=== PATIENT | male | born 1955 | race Caucasian/White ===

== ENCOUNTER 2016-06-08 21:40 | Observation (INO) | payer OTHER ==
[~2016-06-08] VITALS: Ht 186.7 cm; Wt 103.1 kg
[~2016-06-08 21:40] MED LIST: ASPEC81 PO; ATEN-173 PO; CLIN150C PO; FERR324T PO; MAGN400T6 PO; MORP15TA19 PO; MULT-506 PO; NITR0.4S UT; OMEG10007 PO; SIMV20TA2 PO; WARF1TAB PO
[2016-06-08] MEDS ORDERED: METOPROLOL TARTRATE 1 MG/ML VIAL ONE (21:50)
[2016-06-08] MEDS ORDERED: SODIUM CHLORIDE 0.9% 1000ML 500 ML IV STA (21:54)
[2016-06-08] MEDS ORDERED: METOPROLOL TARTRATE 1 MG/ML VIAL IV STA (21:54)
[2016-06-08] MEDS ORDERED: ADENOSINE IV SOLN 3 MG/ML 2 ML VIAL IV ONE (21:58)
[2016-06-08] MEDS ORDERED: CLOP1TAB15 PO (22:05)
[2016-06-08 22:14] LABS: HEMATOCRIT 47.9 % (42-52); MEAN CELL VOLUME 88.7 fL (80-100); MEAN CORPUSCULAR HEMOGLOBIN 31.5 pg (25-34); MEAN CORPUSCULAR HGB CONC 35.5 g/dl (32-36); MEAN PLATELET VOLUME 10.1 fL (7.4-10.4); PLATELET COUNT 178 K/uL (130-400); WHITE BLOOD COUNT 7.22 K/uL (4.8-10.8)
[2016-06-08 22:18] LABS: BUN/CREATININE RATIO 15.1 (10-20); CALCIUM 8.8 mg/dl (8.5-10.1); CREATININE 0.96 mg/dl (0.60-1.40); MAGNESIUM 2.3 mg/dl (1.8-2.4); POTASSIUM 3.8 mmol/L (3.5-5.1)
[2016-06-08] MEDS ORDERED: SIMV40TA4 PO (22:18)
[2016-06-08] MEDS ORDERED: ZINC25TA PO (22:18)
[2016-06-08 22:23] LABS: ALB/GLOB RATIO 1.2 (0.9-2); CKMB/CK RATIO 1.8 (0-3.0)
--- NOTE | 2016-06-08 22:24 | EMERGENCY ROOM VISIT NOTE ---
History Report prepared by Beatriz: Arcenio Tadeo Under the Supervision of: Dr. Neno Healy M.D. First contact with patient: 21:45 Chief Complaint: CHEST PAIN Stated Complaint: CHEST PAIN,NAUSEA,SWEATS History of Present Illness The patient is a 61 year old male who presents to the Emergency Room with complaints of constant chest pain beginning shortly prior to arrival. He has associated nausea, diaphoresis, and heart palpitations. He describes his pain as a feeling of "pressure" and rates it as a 5/10 in severity. The patient denies any pain radiation, SOB, cough or congestion. He notes that he often gets chest pressure with exercise. He states that his chest pressure today began after he had dinner and walked over to his workshop. He is on Atenolol, and states that he has taken it as instructed. The patient has a history of four cardiac stent placements, atrial fibrillation, and multiple cardiac ablations. He states that his most recent ablation was 4-5 years ago and was to correct his atrial fibrillation. He notes that he has been in atrial flutter before in the past. Source of History: patient Onset: shortly prior to arrival Position: chest Symptom Intensity: 5/10 Quality: pressure Timing: constant Associated Symptoms: + diaphoresis, + nausea, No SOB, No cough Note: The patient denies any pain radiation, or congestion. He has associated heart palpitations. Review of Systems See HPI for pertinent positives & negatives. A total of 10 systems reviewed and were otherwise negative. Past Medical & Surgical Medical Problems: (1) Atrial fibrillation (2) Atrial flutter Surgical Problems: (1) H/O heart artery stent (2) History of cardiac radiofrequency ablation Family History No pertinent family history stated. Social History Marital Status: Current/Historical Medications Scheduled Aspirin Enteric Coated (Ecotrin Or Generic *), 81 MG PO DAILY Atenolol (Tenormin), 25 MG PO DAILY Clindamycin Hcl (Cleocin), 150 MG PO DIRECTED Clopidogrel (Plavix), 75 MG PO DAILY Fish Oil ([place]-3), 1 CAP PO BID Magnesium Oxide (Mag-Ox), 400 MG PO DAILY Multivitamin (Multivitamin), 1 TAB PO DAILY Nitroglycerin (Nitrostat), 0.4 MG UT PRN Simvastatin (Zocor), 40 MG PO QPM Zinc (Zinc), 25 MG PO DAILY Allergies Coded Allergies: Amoxicillin (Verified Adverse Reaction, Severe, GI SYMPTOMS, 06/08/16) Penicillins (Verified Adverse Reaction, Unknown, NAUSEA AND DIARRHEA, ) SEVERE DIARRHEA Physical Exam Vital Signs Date Time Temp Pulse Resp B/P Pulse Ox O2 Delivery O2 Flow Rate FiO2 06/08/16 23:30 59 12 119/67 96 Room Air 06/08/16 23:13 119/65 06/08/16 23:00 64 14 128/69 95 Room Air 06/08/16 22:43 114/67 06/08/16 22:30 63 15 122/72 95 Room Air 06/08/16 22:13 120/71 06/08/16 22:04 128/71 06/08/16 22:04 99 Room Air 06/08/16 22:00 95 13 125/74 97 Room Air 06/08/16 21:54 148 06/08/16 21:54 147 128/71 06/08/16 21:42 36.4 151 18 127/94 97 Room Air 06/08/16 21:42 97 Room Air Physical Exam GENERAL: Patient is in no acute distress. HEENT: No acute trauma, normocephalic atraumatic, mucous membranes moist, no nasal congestion, no scleral icterus. NECK: No stridor, no adenopathy, no meningismus, trachea is midline. LUNGS: Clear to auscultation bilaterally, no wheeze, no rhonchi, breath sounds equal. HEART: Tachycardic with a regular rhythm. No murmurs. ABDOMEN: Soft, nontender, bowel sounds positive, no hernias, no peritonitis. EXTREMITIES: No cyanosis or edema, full range of motion of all the joints without pain or difficulty, no signs for acute trauma. NEUROLOGIC: Oriented x 3, no acute motor or sensory deficits, no focal weakness. SKIN: No rash, no jaundice, no diaphoresis. Medical Decision & Procedures ER Provider Diagnostic Interpretation: X-ray results as stated below per interpretation by me and the radiologist: CHEST ONE VIEW PORTABLE FINDINGS: The lungs are clear. Cardiac silhouette is normal in size. No pleural effusions. No pneumothorax. IMPRESSION: No acute process. Electronically signed by: Mynor Childers M.D. Laboratory Results 06/08/16 21:53 06/08/16 21:53 Test 06/08/16 21:53 06/09/16 00:00 Red Blood Count 5.40 M/uL (4.7-6.1) Mean Corpuscular Volume 88.7 fL (80-100) Mean Corpuscular Hemoglobin 31.5 pg (25-34) Mean Corpuscular Hemoglobin Concent 35.5 g/dl (32-36) RDW Standard Deviation 40.6 fL (36.4-46.3) RDW Coefficient of Variation 12.6 % (11.5-14.5) Mean Platelet Volume 10.1 fL (7.4-10.4) Prothrombin Time 11.0 SECONDS (9.0-12.0) Prothromb Time International Ratio 1.0 (0.9-1.1) Activated Partial Thromboplast Time 25.8 SECONDS (21.0-31.0) Partial Thromboplastin Ratio 1.0 Anion Gap 11.0 mmol/L (3-11) Est Creatinine Clear Calc Drug Dose 104.0 ml/min Estimated GFR () 98.5 Estimated GFR (Non- 85.0 BUN/Creatinine Ratio 15.1 (10-20) Calcium Level 8.8 mg/dl (8.5-10.1) Magnesium Level 2.3 mg/dl (1.8-2.4) Total Bilirubin 0.4 mg/dl (0.2-1) Aspartate Amino Transf (AST/SGOT) 30 U/L (15-37) Alanine Aminotransferase (ALT/SGPT) 36 U/L (12-78) Alkaline Phosphatase 58 U/L (45-117) Total Creatine Kinase 287 U/L (39-308) Creatine Kinase MB 5.2 ng/ml (0.5-3.6) Creatine Kinase MB Ratio 1.8 (0-3.0) Total Protein 7.6 gm/dl (6.4-8.2) Albumin 4.1 gm/dl (3.4-5.0) Globulin 3.5 gm/dl (2.5-4.0) Albumin/Globulin Ratio 1.2 (0.9-2) Bedside Troponin I 0.160 ng/ml (0-0.045) Laboratory results reviewed by me. Medications Administered Medications (Trade) Dose Ordered Sig/Bruno Route Start Time Stop Time Status Last Admin Dose Admin Sodium Chloride (Nss 1000ml) 500 ml @ 999 mls/hr Q31M STAT IV 06/08/16 21:54 06/08/16 22:24 DC 06/08/16 21:54 999 MLS/HR Metoprolol Tartrate (Lopressor Iv) 5 mg NOW STAT IV 06/08/16 21:54 06/08/16 21:57 DC 06/08/16 21:54 5 MG Adenosine (Adenosine IV) 6 mg STK-MED ONCE IV 06/08/16 21:58 06/08/16 22:00 DC 06/08/16 21:58 6 MG ECG Indication: chest pain Rate (beats per minute): 151 Rhythm: SVT Findings: no acute ischemic change, no ectopy, other (Nonspecific T-wave change ) Change: Repeat ECG reveals a normal sinus rhythm with an incomplete right bundle branch block. The rate is 69 bpm. No ischemic change is seen. ED Course 2144: The patient was evaluated in room B2. A complete history and physical exam was performed. 2153: Ordered Lopressor 5 mg IV, NSS 500 mL @ 999 mL/hr IV. 2157: Ordered Adenosine 6 mg IV. 2199: The patient received his Adenosine. He handled the medication well. 5: The patient states that his pain is gone, but he feels something that he can't quite explain in his chest. 0029: Upon reexamination the patient is resting comfortably. I discussed results and treatment plan with the patient. He verbalizes agreement and understanding. The patient will be evaluated for further management. Medical Decision The patient is a 61 year old male who presents to the ED with complaints of chest pain. Differential diagnoses considered include SVT, a fib/a flutter, electrolyte imbalance, anemia, dehydration, medication reaction, and cardiac ischemia. There is no leukocytosis or concerning anemia. No significant electrolyte abnormality, kidney failure or hepatitis. EKG showed what appeared to be an SVT or rapid A. flutter. No acute ischemic changes. Chest x-ray showed no mediastinal widening, pneumonia or pneumothorax. The patient presented with chest discomfort and tachycardia. He was aggressively managed. He received a 500 mL saline bolus. I did attempt to perform some vagal and Valsalva maneuvers however, the patient's tachycardia did not break. He received 5 mg of IV Lopressor with a slight slowing of the heart rate but he remained tachycardic. He then received 6 mg of IV Adenosine as a rapid push. This broke the tachycardia to a normal sinus rhythm. Repeat EKG showed a normal sinus rhythm without acute ischemia. Cardiac enzyme testing showed some rise to the troponin. This could be consistent with cardiac strain/injury. The patient is now pain free and doing well. Given the troponin findings and given his current presentation and past history, admission/observation was warranted. I spoke to the patient and case management. The on-call hospitalist was consulted. Consults Time Called: 23 Consulting Physician: Dr. Ron Ho Returned Call: [phone] Discussed the patient's case. The patient will be evaluated for further management. Impression Primary Impression: SVT (supraventricular tachycardia) Additional Impression: Elevated troponin Scribe Attestation The scribe's documentation has been prepared under my direction and personally reviewed by me in its entirety. I confirm that the note above accurately reflects all work, treatment, procedures, and medical decision making performed by me. Departure Information Dispostion Being Evaluated By Hospitalist Referrals Clement Beckwith M.D. (PCP) Patient Instructions A Signature Page, My [facility]
--- NOTE | 2016-06-08 22:31 | DIAGNOSTIC IMAGING REPORT ---
CHEST ONE VIEW PORTABLE HISTORY: Atypical CHEST PAIN COMPARISON: Chest 05/01/2012. FINDINGS: The lungs are clear. Cardiac silhouette is normal in size. No pleural effusions. No pneumothorax. IMPRESSION: No acute process. Electronically signed by: Mynor Childers M.D. 06/08/2016 10:29 PM Dictated Date/Time: 06/08/2016 10:27 PM
[2016-06-09] VITALS (8 sets, daily range): BP systolic 109–130; BP diastolic 66–75; PULSE 48–53; TEMP 36.3–36.5; O2SAT 95–98; Ht 186.7 cm; Wt 103.1 kg
[2016-06-09] MEDS ORDERED: MAGNESIUM HYDROXIDE SUSP 30 ML UDC PO PRN (01:00)
[2016-06-09] MEDS ORDERED: ALUMINUM/MAGNESIUM/SIMETH (MAALOX MAX) 30 ML UDC PO PRN (01:00)
[2016-06-09] MEDS ORDERED: POLYETHYLENE (MIRALAX) 17 GM PACK PO PRN (01:00)
[2016-06-09] MEDS ORDERED: ACETAMINOPHEN 325 MG TAB PO PRN (01:00)
[2016-06-09] MEDS ORDERED: NITROGLYCERIN 0.4 MG SL PER TAB CHARGE SL PRN (01:00)
[2016-06-09] MEDS ORDERED: ONDANSETRON INJ 2 MG/ML 2 ML VIAL IV PRN (01:00)
--- NOTE | 2016-06-09 01:52 | History and Physical ---
History & Physical Date & Time of Service: Jun 09, 2016 at 01:42 Chief Complaint: Chest Pain,Nausea,Sweats Primary Care Physician: Clement Beckwith M.D. History of Present Illness Source: patient, family, clinic records, hospital records This is a 61 year old male with PMH of CAD s/p multiple cardiac stents - last one in 2007; hx. of atrial fibrillation and atrial flutter s/p multiple cardiac ablations, last one in 2011; presented here secondary to chest discomfort - stated that he was in his usual state of health when he suddenly developed a dull, achy left sided chest discomfort, with no radiation of his pain. He presented to the ER and was found to have heart rates in the 140s-150s. Was given IV Lopressor, which did not work. As per ER doctor, this seemed like an SVT; and patient was then given Adenosine, which converted him back to sinus rhythm and controlled rate. Patient states that since this episode of SVT broke , he has not had chest discomfort. Due to elevated troponin level, he is brought in for admission. Currently symptom free. Past Medical/Surgical History Medical Problems: (1) Atrial fibrillation Status: Resolved (2) Atrial flutter Status: Resolved Surgical Problems: (1) H/O heart artery stent Status: Chronic (2) History of cardiac radiofrequency ablation Status: Resolved Social History Smoking Status: Never Smoker Marital Status: Immunizations History of Influenza Vaccine: Yes History of Tetanus Vaccine?: Yes History of Pneumococcal: Yes History of Hepatitis B Vaccine: Unknown Multi-Drug Resistant Organisms History of MDRO: No Allergies Coded Allergies: Amoxicillin (Verified Adverse Reaction, Severe, GI SYMPTOMS, 06/08/16) Penicillins (Verified Adverse Reaction, Unknown, NAUSEA AND DIARRHEA, ) SEVERE DIARRHEA Home Medications Scheduled Aspirin Enteric Coated (Ecotrin Or Generic *), 81 MG PO DAILY Atenolol (Tenormin), 25 MG PO DAILY Clindamycin Hcl (Cleocin), 150 MG PO DIRECTED Clopidogrel (Plavix), 75 MG PO DAILY Fish Oil ([place]-3), 1 CAP PO BID Magnesium Oxide (Mag-Ox), 400 MG PO DAILY Multivitamin (Multivitamin), 1 TAB PO DAILY Nitroglycerin (Nitrostat), 0.4 MG UT PRN Simvastatin (Zocor), 40 MG PO QPM Zinc (Zinc), 25 MG PO DAILY Review of Systems Constitutional: No chills, No fever ENT: No nasal symptoms, No sore throat, No tinnitus Respiratory: No cough, No dyspnea at rest, No dyspnea on exertion, No shortness of breath, No sputum, No wheezing Cardiovascular: + chest pain (now resolved), + palpitations (now resolved), No edema, No orthopnea Abdomen: No diarrhea, No nausea, No pain, No vomiting Genitourinary - Male: No dysuria, No urinary frequency, No urinary hesitancy, No urinary incontinence, No urinary retention, No urinary urgency Hematologic / Lymphatic: No abnormal bleeding/bruising Allergic / Immunologic: No environmental allergies, No seasonal allergies Physical Exam Vital Signs Date Time Temp Pulse Resp B/P Pulse Ox O2 Delivery O2 Flow Rate FiO2 06/09/16 01:00 50 12 119/68 96 Room Air 06/09/16 00:45 52 11 116/64 97 Room Air 06/09/16 00:30 54 13 117/70 97 Room Air 06/09/16 00:15 55 20 118/66 97 Room Air 06/09/16 00:00 55 11 96 Room Air 06/08/16 23:30 59 12 119/67 96 Room Air 06/08/16 23:13 119/65 06/08/16 23:00 64 14 128/69 95 Room Air 06/08/16 22:43 114/67 06/08/16 22:30 63 15 122/72 95 Room Air 06/08/16 22:13 120/71 06/08/16 22:04 128/71 06/08/16 22:04 99 Room Air 06/08/16 22:00 95 13 125/74 97 Room Air 06/08/16 21:54 148 06/08/16 21:54 147 128/71 06/08/16 21:42 36.4 151 18 127/94 97 Room Air 06/08/16 21:42 97 Room Air General Appearance: no apparent distress Head: normocephalic, atraumatic Eyes: normal inspection Respiratory/Chest: lungs clear, normal breath sounds, no respiratory distress, no accessory muscle use Cardiovascular: regular rate, rhythm, no edema, no murmur Abdomen/GI: normal bowel sounds, non tender, soft Back: no muscle spasm Extremities/Musculoskelatal: no calf tenderness, normal capillary refill, no pedal edema Neurologic/Psych: no motor/sensory deficits, alert, normal mood/affect Skin: normal color Lymphatic: no adenopathy Diagnostics Laboratory Results Results Past 24 Hours Test 06/08/16 21:53 06/08/16 21:56 06/09/16 00:00 Range/Units White Blood Count 7.22 4.8-10.8 K/uL Red Blood Count 5.40 4.7-6.1 M/uL Hemoglobin 17.0 14.0-18.0 g/dL Hematocrit 47.9 42-52 % Mean Corpuscular Volume 88.7 80-100 fL Mean Corpuscular Hemoglobin 31.5 25-34 pg Mean Corpuscular Hemoglobin Concent 35.5 32-36 g/dl RDW Standard Deviation 40.6 36.4-46.3 fL RDW Coefficient of Variation 12.6 11.5-14.5 % Platelet Count 178 130-400 K/uL Mean Platelet Volume 10.1 7.4-10.4 fL Prothrombin Time 11.0 9.0-12.0 SECONDS Prothromb Time International Ratio 1.0 0.9-1.1 Activated Partial Thromboplast Time 25.8 21.0-31.0 SECONDS Partial Thromboplastin Ratio 1.0 Sodium Level 141 136-145 mmol/L Potassium Level 3.8 3.5-5.1 mmol/L Chloride Level 107 98-107 mmol/L Carbon Dioxide Level 23 21-32 mmol/L Anion Gap 11.0 3-11 mmol/L Blood Urea Nitrogen 15 7-18 mg/dl Creatinine 0.96 0.60-1.40 mg/dl Est Creatinine Clear Calc Drug Dose 104.0 ml/min Estimated GFR () 98.5 Estimated GFR (Non- 85.0 BUN/Creatinine Ratio 15.1 10-20 Random Glucose 135 70-99 mg/dl Calcium Level 8.8 8.5-10.1 mg/dl Magnesium Level 2.3 1.8-2.4 mg/dl Total Bilirubin 0.4 0.2-1 mg/dl Aspartate Amino Transf (AST/SGOT) 30 15-37 U/L Alanine Aminotransferase (ALT/SGPT) 36 12-78 U/L Alkaline Phosphatase 58 45-117 U/L Total Creatine Kinase 287 39-308 U/L Creatine Kinase MB 5.2 0.5-3.6 ng/ml Creatine Kinase MB Ratio 1.8 0-3.0 Total Protein 7.6 6.4-8.2 gm/dl Albumin 4.1 3.4-5.0 gm/dl Globulin 3.5 2.5-4.0 gm/dl Albumin/Globulin Ratio 1.2 0.9-2 Bedside Troponin I 0.020 0.160 0-0.045 ng/ml CXR normal EKG NSR with incomplete RBBB Impression Assessment and Plan This is a 61 year old male with PMH of CAD s/p multiple cardiac stents, hx. of atrial fibrillation and atrial flutter s/p multiple cardiac ablations presented with SVT Supraventricular Tachycardia -->patient presented with a narrow complex tachycardia -->HRs were in the 140s-150s -->given IV lopressor and IV adenosine with good results -->symptoms of chest pain/discomfort have now resolved -->monitor on tele for any arrhythmias overnight -->has a long history of atrial fibrillation/atrial flutter -->continue home b-andrew dose -->consult cardiology for further input Elevated Troponin Level -->this is likely due to above -->initial set of enzymes were negative -->second set slightly elevated -->trend cardiac enzymes -->obtain echo (patient receives yearly echo and stress q2 years - last one negative) CAD s/p multiple stents -->continue ASA, plavix, b-andrew, statin DVT ppx -->subq heparin FULL CODE observe overnight - d/c home after cardiology evaluation VTE Prophylaxis VTE Risk Assessment Done? Y/N: Yes Risk Level: Moderate
[2016-06-09] MEDS ORDERED: IV FLUIDS COMPLETED PRN (02:30)
[2016-06-09] MEDS: SODIUM CHLORIDE 0.9% 1000ML 1,000 ML IV SCH ×2 (02:50→13:29)
[2016-06-09] MEDS: HEPARIN SOD 5000 UNIT/0.5 ML CARP SQ SCH ×2 (05:56→13:55)
[2016-06-09 07:13] LABS: MEAN CELL VOLUME 89.4 fL (80-100); MEAN CORPUSCULAR HEMOGLOBIN 30.7 pg (25-34); MEAN CORPUSCULAR HGB CONC 34.3 g/dl (32-36); MEAN PLATELET VOLUME 9.8 fL (7.4-10.4); PLATELET COUNT 164 K/uL (130-400); RED BLOOD COUNT 4.92 M/uL (4.7-6.1); WHITE BLOOD COUNT 5.32 K/uL (4.8-10.8)
[2016-06-09 07:20] LABS: BUN/CREATININE RATIO 16.5 (10-20); CALCIUM 8.7 mg/dl (8.5-10.1); CREATININE 0.78 mg/dl (0.60-1.40); MAGNESIUM 2.3 mg/dl (1.8-2.4); POTASSIUM 3.9 mmol/L (3.5-5.1)
[2016-06-09 07:39] LABS: CKMB/CK RATIO 2.7 (0-3.0); THYROID STIMULATING HORMONE 2.35 uIu/ml (0.300-4.500)
[2016-06-09] MEDS ORDERED: ASPIRIN 81 MG ECTAB PO SCH (09:00)
[2016-06-09] MEDS ORDERED: CLOPIDOGREL BISULFATE 75 MG TAB PO SCH (09:00)
--- NOTE | 2016-06-09 10:11 | ECHOCARDIOGRAM REPORT ---
*NOTICE TO RECEIVING [employer] This information is strictly Confidential and protected under [place] law. [place] law prohibits you from making any further disclosure of this information unless further disclosure is expressly permitted by the written consent of the person to whom it pertains or is authorized by law. A general authorization for the release of medical or other information is not sufficient for this purpose. Hospital accepts no responsibility if the information is made available to any other person, INCLUDING THE PATIENT. Interpretation Summary * Name: MCKINLEY CHEUNG Study Date: 06/09/2016 07:08 AM BP: 109/68 mmHg * Patient Location: C.2T\S\S240\S\1 HR: 49 * : 1955 (M/d/yyy) Gender: Male Height: 73 in * Age: 61 yrs Ethnicity: [place] Weight: 233 lb * Ordering Physician: Lucian Velasquez * Referring Physician: Self, Referred * Performed By: Felice Beltran RDCS * * Reason For Study: SVT * BSA: 2.3 m2 * -- Conclusions -- * There is mild concentric left ventricular hypertrophy. * No regional wall motion abnormalities noted. * The LV Ejection Fraction = 60-65%. * The left atrium is mildly dilated. * The aortic valve is bicuspid. * There is fusion of the left and right coronary cusps with an area of severe focal calcification at the raphe. * Mild aortic regurgitation. * Aortic stenosis is absent. * Diastolic dysfunction, Grade II (pseudonormalization pattern). * Compared to the report of the outpatient study performed at [facility] dated, 08/21/15, there has been no significant interval change. Procedure Details * A complete two-dimensional transthoracic echocardiogram was performed (2D, M-mode, Doppler and color flow Doppler). * The study was technically adequate. Left Ventricle * The left ventricle is normal in size. * There is mild concentric left ventricular hypertrophy. * Left ventricular systolic function is normal. * Ejection Fraction = 60-65%. * The left ventricular wall motion is normal. * No regional wall motion abnormalities noted. Right Ventricle * The right ventricle is normal size. * The right ventricular systolic function is normal as assessed by tricuspid annular plane systolic excursion (TAPSE) (normal >1.5 cm). Atria * The left atrium is mildly dilated. * Right atrial size is normal. * There is no evidence of atrial septal defect, but resolution does not allow assessment for a patent foramen ovale. Mitral Valve * The mitral valve is normal. * There is no mitral valve stenosis. * There is trace mitral regurgitation. Tricuspid Valve * The tricuspid valve is normal. * There is no tricuspid stenosis. * Significant tricuspid regurgitation is absent. Aortic Valve * The aortic valve is bicuspid. * There is fusion of the left and right coronary cusps with an area of severe focal calcification at the raphe. * Aortic stenosis is absent. * Mild aortic regurgitation. Pulmonic Valve * The pulmonary valve is not well seen, but the Doppler examination is normal without significant regurgitation or stenosis. Great Vessels * The aortic root and proximal ascending aorta are normal sized. Pericardium/Pleural * There is no pericardial effusion. Great Vessels * Normal inferior vena cava diameter and respiratory variation suggests normal central venous pressure. Left Ventricular Diastolic Function * Diastolic dysfunction, Grade II (pseudonormalization pattern). MMode 2D Measurements and Calculations IVSd 1.3 cm IVSs 2.0 cm LVIDd 5.3 cm LVIDs 3.7 cm LVPWd 1.2 cm LVPWs 2.0 cm IVS/LVPW 1.1 FS 30.7 % EDV(Teich) 136.5 ml ESV(Teich) 57.6 ml EF(Teich) 57.8 % EDV(cubed) 150.6 ml ESV(cubed) 50.1 ml EF(cubed) 66.7 % % IVS thick 45.6 % % LVPW thick 62.7 % LV mass(C)d 280.3 grams LV mass(C)dI 122.1 grams/m\S\2 LV mass(C)s 323.9 grams LV mass(C)sI 141.1 grams/m\S\2 SV(Teich) 78.9 ml SI(Teich) 34.4 ml/m\S\2 SV(cubed) 100.5 ml SI(cubed) 43.8 ml/m\S\2 Ao root diam 3.9 cm Ao root area 12.2 cm\S\2 ACS 1.8 cm LA dimension 4.4 cm asc Aorta Diam 4.0 cm LA/Ao 1.1 LVOT diam 2.6 cm LVOT area 5.2 cm\S\2 LVAd ap4 30.7 cm\S\2 LVLd ap4 8.7 cm EDV(MOD-sp4) 90.0 ml LVAs ap4 17.1 cm\S\2 LVLs ap4 7.7 cm ESV(MOD-sp4) 32.0 ml EF(MOD-sp4) 64.4 % LVAd ap2 33.2 cm\S\2 LVLd ap2 9.6 cm EDV(MOD-sp2) 95.0 ml LVAs ap2 17.0 cm\S\2 LVLs ap2 6.9 cm ESV(MOD-sp2) 33.0 ml EF(MOD-sp2) 65.3 % SV(MOD-sp4) 58.0 ml SI(MOD-sp4) 25.3 ml/m\S\2 SV(MOD-sp2) 62.0 ml SI(MOD-sp2) 27.0 ml/m\S\2 Doppler Measurements and Calculations MV E max ramez 77.1 cm/sec MV A max ramez 39.4 cm/sec MV E/A 2.0 MV dec time 0.20 sec Ao V2 max 197.4 cm/sec Ao max PG 15.6 mmHg Ao max PG (full) 11.6 mmHg Ao V2 mean 135.2 cm/sec Ao mean PG 8.4 mmHg Ao mean PG (full) 6.3 mmHg Ao V2 VTI 47.6 cm NASRA(I,A) 3.0 cm\S\2 NASRA(I,D) 3.0 cm\S\2 NASRA(V,A) 2.6 cm\S\2 NASRA(V,D) 2.6 cm\S\2 AI max ramez 318.7 cm/sec AI max PG 40.7 mmHg AI dec slope 128.8 cm/sec\S\2 AI P1/2t 724.8 msec LV V1 max PG 3.9 mmHg LV V1 mean PG 2.1 mmHg LV V1 max 99.3 cm/sec LV V1 mean 68.8 cm/sec LV V1 VTI 27.1 cm SV(Ao) 578.5 ml SI(Ao) 251.9 ml/m\S\2 SV(LVOT) 141.7 ml SI(LVOT) 61.7 ml/m\S\2 PA V2 max 95.6 cm/sec PA max PG 3.7 mmHg PI end-d ramez 113.5 cm/sec TR max ramez 257.8 cm/sec
--- NOTE | 2016-06-09 13:41 | CARDIOLOGY CONSULTATION ---
DATE OF CONSULTATION: 06/09/2016 HISTORY OF PRESENT ILLNESS: Mr. Glaser is a 61-year-old male seen in cardiology consultation per the request of Dr. Velasquez for the evaluation of narrow complex tachycardia, chest pain, and elevation in troponin. The patient's primary jackerman is Dr. Fred Srinivasan of our practice, whom the patient had last seen in April 2016. The patient has a history of atrial arrhythmias including paroxysmal atrial fibrillation and atrial flutter, having undergone pulmonary vein isolation in 2008 and again in 2010, with the 2010 procedure also accompanied by tricuspid caval isthmus ablation for atrial flutter at that time. The patient also has a history of CAD and bicuspid aortic valve. All summarized in detail below. The patient states that 6 months ago, he had a syncopal episode. At that time, he was on atenolol 50 mg daily. It was felt that his resting heart rate was too low and the atenolol dose was reduced from 50 mg daily to 25 mg daily. He went on to have a 13-day cardiac Zio monitor that took place from 10/05/2015 until 10/19/2015. The monitor revealed a single 4-beat run of nonsustained ventricular tachycardia and 9 brief runs of supraventricular tachycardia. The supraventricular tachycardia episode with the fastest interval was 6 beats in duration with the maximum rate of 156 beats per minute and the longest SVT santo was 10 beats in duration with an average heart rate of 92 beats per minute. The patient has felt well in the interim time on his lower dose of atenolol. 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 The symptoms persisted for about an hour and he ultimately presented to the Emergency Room with initial EKG performed on 06/08/2015 at 2146 hours, revealing narrow complex tachycardia at 151 beats per minute with mild nonspecific ST changes. The patient received 5 mg of IV metoprolol at 2150. He then received 6 mg of IV adenosine at 2202. With adenosine, he spontaneously converted to sinus bradycardia with a 1.4-second conversion pause. No flutter waves were visible with the administration of adenosine, and looking at the morphology of the tachycardia by 12-lead EKG as well as the telemetry of how he converted, this appears to be due to a supraventricular tachycardia. The patient states that his chest pressure resolved after resolution of the tachycardia. Repeat EKG revealed sinus rhythm at 69 beats per minute with incomplete right bundle branch block and no significant ST changes. Ventricular rate was decreased by 82 beats per minute. Although, mild inferior ST depression was noted, this was not drastically different from his previous baseline EKG. It was noted that the patient has a history of chronic coronary artery disease with the details summarized below. His last exercise stress echocardiogram took place in July 2014, at which time he exercised for 12 minutes with no EKG or echocardiographic evidence of inducible ischemia. He does have the history of warm-up angina. He exercises routinely, doing a few miles of treadmill exercise and stationary bicycle exercise daily and he typically has mild chest discomfort that was started with exercise that resolves with progressive exercise. He does exercise program yesterday and noted no significant symptoms whatsoever. He notes that he was in his normal state of health prior to the tachycardia episode last night with no recent fevers or chills. No recent illness, otherwise. PAST MEDICAL HISTORY: 1. Coronary heart disease with cardiac catheterization in 2004 and 2007, for which he underwent stenting to the RCA and PDA in 2004. In 2007, he was found to have nonobstructive left main and LAD disease with a 70% proximal circumflex stenosis and 100% occlusion at the mid right coronary artery with left to right collaterals. He underwent stenting to the circumflex OM at that time and a complete right coronary artery occlusion was managed medically. 2. Bicuspid aortic valve with a history of mild to moderate aortic valve regurgitation. 3. History of recurrent symptomatic atrial fibrillation. He was treated with flecainide in 2001, which was subsequently discontinued after 5 months of therapy as it was ineffective. From 2001 to 2007, he was managed with digoxin and atenolol. In 2007, sotalol was initiated, but the dose was limited by bradycardia and he therefore underwent his first pulmonary vein isolation with procedure having been performed by Dr. Courtney Angel of electrophysiology at [facility] on 10/26/2008. He had recurrent atrial fibrillation in the fall of 2008 and was started on a low-dose sotalol. He underwent repeat pulmonary vein isolation for recurrent symptomatic atrial fibrillation on 02/07/2011 with right-sided tricuspid isthmus ablation for atrial flutter at the same setting in January 2009. Sotalol dose of 80 mg a.m. and 40 mg in p.m. was discontinued in 2011, he was subsequently transitioned to metoprolol succinate, and then to atenolol 50 mg daily. The dose of atenolol was reduced to 25 mg daily 6 months ago (Oct, 2015) due to syncopal episode as outlined above. 4. History of therapy with aspirin, clopidogrel, plus Pradaxa. Pradaxa was discontinued on 05/09/2011 three months post-recurrent ablation and he has remained on chronic dual antiplatelet therapy with aspirin and clopidogrel due to his chronic coronary heart disease. PAST SURGICAL HISTORY: 1. Cardiac catheterization x2 as outlined above. 2. History of pulmonary vein isolation x2 as well as atrial flutter ablation. 3. Status post left knee replacement. FAMILY HISTORY: Father of Hodgkin's lymphoma at the age of 53. SOCIAL HISTORY: The patient is . His spouse accompanies him at the bedside. 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 He exercises regularly. Drinks alcohol rarely. He is a nonsmoker. REVIEW OF SYSTEMS: A 10-point review of systems was reviewed and is negative with the exception of that above. HOME MEDICATIONS: 1. Aspirin 81 mg by mouth daily. 2. Atenolol 25 mg by mouth daily. 3. Clindamycin 150 mg 4 tablets by mouth prior to dental procedures. 4. Clopidogrel 75 mg daily. 5. Fish oil 1000 mg by mouth 2 times per day. 6. Magnesium oxide 400 mg b.i.d. 7. Sublingual nitroglycerin 0.4 mg as needed for chest pain. 8. Simvastatin 40 mg by mouth daily. DIAGNOSTIC DATA: As outlined above with addition of echocardiogram performed today and reviewed independently by the undersigned revealed mild concentric left ventricular hypertrophy with normal LV wall motion, the ejection fraction is normal at 60%-65%. The left atrium is mildly dilated. The aortic valve is bicuspid with fusion of the left and right coronary cusps and an area of severe focal calcification at the area of the raphe. Mild aortic valve regurgitation is noted. No significant aortic stenosis is noted. Grade 2 diastolic dysfunction is noted. Compared to the record of the outpatient study performed at [facility] dated 08/21/2015, there has been no significant interval change. LABORATORY STUDIES: Hemoglobin 15.1, WBC 5.3, and platelet count 164. Sodium 141, potassium 3.9, BUN 13, and creatinine 0.78. CPK 287 and 201 respectively. Troponin 0.020, 0.160, and 0.827 with elevated CK-MB of 5.4. TSH was within normal limits. FINAL IMPRESSION: 61-year-old male 1. Symptomatic paroxysmal supraventricular tachycardia with associated mild myocardial injury as documented by mild troponin I elevation. This is likely a type 2 with ischemic event due to significant tachycardia in the setting of fixed coronary artery disease with known chronic mid right coronary artery occlusion and left to right collaterals on his last coronary angiogram, previous circumflex stenting. 2. History of paroxysmal atrial fibrillation and atrial flutter, for which he has undergone pulmonary vein isolation x2 as well as atrial flutter ablation. 3. Coronary artery disease as outlined above. 4. Dyslipidemia, on statin therapy. 5. Stable bicuspid aortic valve with mild aortic valve regurgitation. DISCUSSION AND PLAN: His outpatient records were reviewed in detail including his 13-day shelter monitor that was performed 6 months ago and his prior electrophysiology notes. It sounds as though medication therapy for his atrial arrhythmias was limited in the past by relative bradycardia. A few months ago, his atenolol dose was decreased due to symptomatic bradycardia. We discussed the following options. One option would be to maintain the same medications and to plan for outpatient general cardiology as well as electrophysiology followup. Future considerations would include permanent pacemaker implantation for heart rate support, which would allow more aggressive medication therapy, as alternative for repeat ablation. Repeat electrophysiology study for SVT and possible ablation could be attempted. I discussed potential of going back up on his atenolol therapy; however, I think that this would be too risky given his past syncopal episode associated bradycardia. We discussed the option of going back on sotalol. This would require inpatient initiation and I am not very optimistic that this strategy would be effective, as I would anticipate that the dose of sotalol would be limited by his resting bradycardia with sinus bradycardia in the 45-55 beats per minute range at rest on telemetry at present and I do not think the sotalol, which likely offer much more in the way of rhythm control on this low dose atenolol that he is currently on. I thought that the patient did have a small elevation in his cardiac enzymes. He does note a longstanding history of "warmup angina." This has been well documented in his record dating back to prior to 2011. He exercises regularly and has had no recent anginal symptoms. I do not think his presentation represents an acute intracoronary plaque rupture and I think that the mild elevation in the troponin I is due to myocardial necrosis from his tachycardia episode in the setting of fixed underlying CAD. At this time, the patient is to be discharged on the same medications with plans to proceed with outpatient surveillance and EP / General Cardiology follow up within the next 1-4 weeks. The case was discussed with hospitalist, Dr. Villagran. FRANCISCO
--- NOTE | 2016-06-09 14:56 | Discharge Instructions ---
Discharge Instructions Admission Reason for Admission: Elevated Troponin, Svt Discharge Discharge Diagnosis / Problem: Symptomatic paroxysmal supraventricular tachycardia Discharge Goals Goal(s): Decrease discomfort, Improve function Activity Recommendations Activity Limitations: resume your previous activity . Instructions / Follow-Up Instructions / Follow-Up Follow up with on 06/18/16 at 2:20pm Follow up with your farm equipment technician Seek immediate medical attention if your symptoms reoccur or worsen. Current Hospital Diet Patient's current hospital diet: AHA Diet (Heart Healthy) Discharge Diet Recommended Diet: AHA Diet (Heart Healthy) Procedures Procedures Performed: ECHO Pending Studies Studies pending at discharge: no Medical Emergencies . Who to Call and When: Medical Emergencies: If at any time you feel your situation is an emergency, please call 911 immediately. . Non-Emergent Contact Non-Emergency issues call your: Primary Care Provider, Base Loader . . "Provider Documentation" section prepared by Benjamín Villagran. VTE Core Measure Inpt VTE Proph given/why not?: Unfractionated heparin SQ
--- NOTE | 2016-06-09 17:25 | Progress Note ---
Internal Med Progress Note Date of Service: Jun 09, 2016. Provider Documentation: SUBJECTIVE: Patient is seen and examined at bedside. He denies any chest pain, SOB, palpitations. States chest pain has resolved after the medication given at the time of admission. OBJECTIVE: Vital Signs-as noted below General Appearance: no apparent distress, well built and nourished Head: normocephalic, atraumatic Eyes: normal inspection, EOMI, PERRLA Respiratory/Chest: lungs clear, normal breath sounds, no respiratory distress, no accessory muscle use Cardiovascular: s1, s2, regular rate, rhythm, no edema, no murmur Abdomen/GI: normal bowel sounds, non tender, soft Back: no muscle spasm Extremities/Musculoskelatal: no calf tenderness, normal capillary refill, no pedal edema Neurologic/Psych: no motor/sensory deficits, alert, normal mood/affect Skin: normal color Lymphatic: no adenopathy Lab data as noted below. ASSESSMENT & PLAN: Patient is a 61 yr old male with PMH of CAD s/p multiple cardiac stents, H/O atrial fibrillation and atrial flutter s/p multiple cardiac ablations presented with chest discomfort. He was found to have SVT with HR in 140-150s while in ED. He was initially given IV Lopressor which did not help and later given Adenosine and patient converted back to sinus rhythm and his symptoms resolved. Symptomatic paroxysmal SVT: Currently symptom free S/P Adenosine Mild elevation in Troponin: secondary to Type 2 Ischemic event secondary to SVT H/O P.Afib and flutter S/P Pulmonary vein isolation x 2 and atrial flutter ablation ECHO: No wall motion abnormality H/O Relative bradycardia-Difficult to manage with aggressive medication therapy Cardiology on board Needs to follow EP as outpatient for further management No medication changes made during the hospital course CAD S/P DE stents EKG showed no signs of ischemia Dyslipidemia Stable Continue Statin Bicuspid aortic valve with mild AR Stable DVT Px: Heparin SQ Code status: Full code Vital Signs: Date Time Temp Pulse Resp B/P Pulse Ox O2 Delivery O2 Flow Rate FiO2 06/09/16 15:12 36.5 51 20 95 Room Air 06/09/16 12:48 36.5 51 20 117/66 95 06/09/16 12:00 95 Room Air 06/09/16 08:00 96 Room Air 06/09/16 06:39 36.4 48 20 130/75 96 Room Air 06/09/16 04:00 98 Room Air 06/09/16 03:36 36.3 50 18 109/68 96 Room Air 06/09/16 02:20 36.3 53 20 128/73 98 Room Air 06/09/16 02:00 49 16 120/68 96 Room Air 06/09/16 01:45 51 14 127/68 97 Room Air 06/09/16 01:30 50 15 121/69 96 Room Air 06/09/16 01:15 50 21 97 Room Air 06/09/16 01:00 50 12 119/68 96 Room Air 06/09/16 00:45 52 11 116/64 97 Room Air 06/09/16 00:30 54 13 117/70 97 Room Air 06/09/16 00:15 55 20 118/66 97 Room Air 06/09/16 00:00 55 11 96 Room Air 06/08/16 23:30 59 12 119/67 96 Room Air 06/08/16 23:13 119/65 06/08/16 23:00 64 14 128/69 95 Room Air 06/08/16 22:43 114/67 06/08/16 22:30 63 15 122/72 95 Room Air 06/08/16 22:13 120/71 06/08/16 22:04 128/71 06/08/16 22:04 99 Room Air 06/08/16 22:00 95 13 125/74 97 Room Air 06/08/16 21:54 148 06/08/16 21:54 147 128/71 06/08/16 21:42 36.4 151 18 127/94 97 Room Air 06/08/16 21:42 97 Room Air Lab Results: Results Past 24 Hours Test 06/08/16 21:53 06/08/16 21:56 06/09/16 00:00 06/09/16 06:12 Range/Units White Blood Count 7.22 5.32 4.8-10.8 K/uL Red Blood Count 5.40 4.92 4.7-6.1 M/uL Hemoglobin 17.0 15.1 14.0-18.0 g/dL Hematocrit 47.9 44.0 42-52 % Mean Corpuscular Volume 88.7 89.4 80-100 fL Mean Corpuscular Hemoglobin 31.5 30.7 25-34 pg Mean Corpuscular Hemoglobin Concent 35.5 34.3 32-36 g/dl RDW Standard Deviation 40.6 42.4 36.4-46.3 fL RDW Coefficient of Variation 12.6 12.9 11.5-14.5 % Platelet Count 178 164 130-400 K/uL Mean Platelet Volume 10.1 9.8 7.4-10.4 fL Prothrombin Time 11.0 9.0-12.0 SECONDS Prothromb Time International Ratio 1.0 0.9-1.1 Activated Partial Thromboplast Time 25.8 21.0-31.0 SECONDS Partial Thromboplastin Ratio 1.0 Sodium Level 141 141 136-145 mmol/L Potassium Level 3.8 3.9 3.5-5.1 mmol/L Chloride Level 107 109 98-107 mmol/L Carbon Dioxide Level 23 25 21-32 mmol/L Anion Gap 11.0 7.0 3-11 mmol/L Blood Urea Nitrogen 15 13 7-18 mg/dl Creatinine 0.96 0.78 0.60-1.40 mg/dl Est Creatinine Clear Calc Drug Dose 104.0 126.4 ml/min Estimated GFR () 98.5 112.9 Estimated GFR (Non- 85.0 97.4 BUN/Creatinine Ratio 15.1 16.5 10-20 Random Glucose 135 95 70-99 mg/dl Calcium Level 8.8 8.7 8.5-10.1 mg/dl Magnesium Level 2.3 2.3 1.8-2.4 mg/dl Total Bilirubin 0.4 0.2-1 mg/dl Aspartate Amino Transf (AST/SGOT) 30 15-37 U/L Alanine Aminotransferase (ALT/SGPT) 36 12-78 U/L Alkaline Phosphatase 58 45-117 U/L Total Creatine Kinase 287 201 39-308 U/L Creatine Kinase MB 5.2 5.4 0.5-3.6 ng/ml Creatine Kinase MB Ratio 1.8 2.7 0-3.0 Total Protein 7.6 6.4-8.2 gm/dl Albumin 4.1 3.4-5.0 gm/dl Globulin 3.5 2.5-4.0 gm/dl Albumin/Globulin Ratio 1.2 0.9-2 Bedside Troponin I 0.020 0.160 0-0.045 ng/ml Troponin I 0.827 0-0.045 ng/ml Thyroid Stimulating Hormone (TSH) 2.350 0.300-4.500 uIu/ml Hepatitis C Antibody Screen NEG NEG Test 06/09/16 14:59 Range/Units Creatine Kinase MB Ratio 0-3.0
[2016-06-09] MEDS ORDERED: SIMVASTATIN 40 MG TAB PO SCH (21:00)
--- NOTE | 2016-06-09 21:12 | Discharge Summary ---
Discharge Summary Admission Date: Jun 09, 2016 at 01:03 Discharge Date: Jun 09, 2016 Principal Diagnosis: Symptomatic paroxysmal supraventricular tachycardia Secondary Diagnoses/Problems: CAD S/P DE stents Dyslipidemia Bicuspid aortic valve with mild AR Procedures: CXR: No acute process. ECHO: Interpretation Summary * Name: MCKINLEY CHEUNG Study Date: 06/09/2016 07:08 AM BP: 109/68 mmHg * Patient Location: [facility]\\S\\[id number]\\S\\1 HR: 49 * : 1955 (M/d/yyyy) Gender: Male Height: 73 in * Age: 61 yrs Ethnicity: [place] Weight: 233 lb * Ordering Physician: Lucian Velasquez * Referring Physician: Self, Referred * Performed By: Felice Beltran RDCS * * Reason For Study: SVT * BSA: 2.3 m2 * -- Conclusions -- * There is mild concentric left ventricular hypertrophy. * No regional wall motion abnormalities noted. * The LV Ejection Fraction = 60-65%. * The left atrium is mildly dilated. * The aortic valve is bicuspid. * There is fusion of the left and right coronary cusps with an area of severe focal calcification at the raphe. * Mild aortic regurgitation. * Aortic stenosis is absent. * Diastolic dysfunction, Grade II (pseudonormalization pattern). * Compared to the report of the outpatient study performed at [facility] dated, 08/21/15, there has been no significant interval change. Consultations: Cardiology Medication Reconciliation Continued Medications: Aspirin Enteric Coated (Ecotrin Or Generic *) 81 Mg Ectab 81 MG PO DAILY, 0 Refills Atenolol (Tenormin) 25 Mg Tab 25 MG PO DAILY, 0 Refills Clindamycin Hcl (Cleocin) 150 Mg Cap 150 MG PO DIRECTED, CAP Clopidogrel (Plavix) 75 Mg Tab 75 MG PO DAILY, TAB Fish Oil ([facility]-3) 1 Ea Cap 1 CAP PO BID, 0 Refills Magnesium Oxide (Mag-Ox) 400 Mg Tab 400 MG PO DAILY, 0 Refills Multivitamin (Multivitamin) Tab 1 TAB PO DAILY, 0 Refills Nitroglycerin (Nitrostat) 0.4 Mg Sub 0.4 MG UT PRN, BTL Simvastatin (Zocor) 40 Mg Tab 40 MG PO QPM, TAB Zinc (Zinc) 25 Mg Tab 25 MG PO DAILY Admission Information HPI (per Admitting provider): This is a 61 year old male with PMH of CAD s/p multiple cardiac stents - last one in 2007; hx. of atrial fibrillation and atrial flutter s/p multiple cardiac ablations, last one in 2011; presented here secondary to chest discomfort - stated that he was in his usual state of health when he suddenly developed a dull, achy left sided chest discomfort, with no radiation of his pain. He presented to the ER and was found to have heart rates in the 140s-150s. Was given IV Lopressor, which did not work. As per ER doctor, this seemed like an SVT; and patient was then given Adenosine, which converted him back to sinus rhythm and controlled rate. Patient states that since this episode of SVT broke , he has not had chest discomfort. Due to elevated troponin level, he is brought in for admission. Currently symptom free. Physical Exam (per Admitting): General Appearance: no apparent distress Head: normocephalic, atraumatic Eyes: normal inspection Respiratory/Chest: lungs clear, normal breath sounds, no respiratory distress, no accessory muscle use Cardiovascular: regular rate, rhythm, no edema, no murmur Abdomen/GI: normal bowel sounds, non tender, soft Back: no muscle spasm Extremities/Musculoskelatal: no calf tenderness, normal capillary refill, no pedal edema Neurologic/Psych: no motor/sensory deficits, alert, normal mood/affect Skin: normal color Lymphatic: no adenopathy Hospital Course Patient is a 61 yr old male with PMH of CAD s/p multiple cardiac stents, H/O atrial fibrillation and atrial flutter s/p multiple cardiac ablations presented with chest discomfort. He was found to have SVT with HR in 140-150s while in ED. He was initially given IV Lopressor which did not help and later given Adenosine and patient converted back to sinus rhythm and his symptoms resolved. ECHO showed no wall motion abnormality. Cardiology was consulted and patient was thought to have elevated troponin secondary to demand ischemia and was advised to follow up with EP as outpatient. Patient was cleared by cardiology and was discharged home in stable condition. Symptomatic paroxysmal SVT: Currently symptom free S/P Adenosine Mild elevation in Troponin: secondary to Type 2 Ischemic event secondary to SVT H/O P.Afib and flutter S/P Pulmonary vein isolation x 2 and atrial flutter ablation ECHO: No wall motion abnormality H/O Relative bradycardia-Difficult to manage with aggressive medication therapy Cardiology on board Needs to follow EP as outpatient for further management No medication changes made during the hospital course CAD S/P DE stents EKG showed no signs of ischemia Dyslipidemia Stable Continue Statin Bicuspid aortic valve with mild AR Stable DVT Px: Heparin SQ Code status: Full code Total time spent on discharge = This includes examination of the patient, discharge planning, medication reconciliation, and communication with other providers. Discharge Instructions Discharge Instructions Admission Reason for Admission: Elevated Troponin, Svt Discharge Discharge Diagnosis / Problem: Symptomatic paroxysmal supraventricular tachycardia Discharge Goals Goal(s): Decrease discomfort, Improve function Activity Recommendations Activity Limitations: resume your previous activity . Instructions / Follow-Up Instructions / Follow-Up Follow up with on 06/18/16 at 2:20pm Follow up with your paralegal legal secretary Seek immediate medical attention if your symptoms reoccur or worsen. Current Hospital Diet Patient's current hospital diet: AHA Diet (Heart Healthy) Discharge Diet Recommended Diet: AHA Diet (Heart Healthy) Procedures Procedures Performed: ECHO Pending Studies Studies pending at discharge: no Medical Emergencies . Who to Call and When: Medical Emergencies: If at any time you feel your situation is an emergency, please call 911 immediately. . Non-Emergent Contact Non-Emergency issues call your: Primary Care Provider, Poultry Scientist . . "Provider Documentation" section prepared by Benjamín Villagran. VTE Core Measure Inpt VTE Proph given/why not?: Unfractionated heparin SQ
== END 2016-06-09 15:32 | disposition home or self-care (01) ==
LOC: ENRESERVTM → ENRESERVDT → C.EDB 21:42 → C.2T 06-09 01:03
PROVIDERS: ADMIT Family Medicine; ATTEND Internal Medicine
DX: I47.1 Supraventricular tachycardia (principal); I25.10 Atherosclerotic heart disease of native coronary artery without angina pectoris; E78.5 Hyperlipidemia, unspecified; I48.0 Paroxysmal atrial fibrillation; I48.92 Unspecified atrial flutter; I35.1 Nonrheumatic aortic (valve) insufficiency; R79.89 Other specified abnormal findings of blood chemistry; Z79.82 Long term (current) use of aspirin; Z88.0 Allergy status to penicillin; Z96.652 Presence of left artificial knee joint; Z80.7 Family history of other malignant neoplasms of lymphoid, hematopoietic and related tissues

== ENCOUNTER 2022-05-25 16:46 | Inpatient (IN) ==
[2022-05-25 17:54] LABS: Basophils # (auto) 0.08 K/uL (0-0.2); Eosinophils # (auto) 0.22 K/uL (0-0.50); Eosinophils % (auto) 2.6 %; Hematocrit (blood only) 43.8 % (40.1-51.0); Hemoglobin 14.6 g/dl (14.0-18.0); Immature Granulocytes # (auto) 0.05 K/uL (0.00-0.02); Immature Granulocytes % (auto) 0.6 %; Lymphocytes # (auto) 1.72 K/uL (1.2-3.4); Lymphocytes % (auto) 20.7 %; Mean Corpuscular Hemoglobin 30.5 pg (25.0-34.0); Mean Corpuscular Hgb Conc 33.3 g/dL (32.0-36.0); Mean Corpuscular Volume 91.4 fL (80.0-100.0); Monocytes # (auto) 0.64 K/uL (0.24-0.82); Monocytes % (auto) 7.7 %; Neutrophils # (auto) 5.61 K/uL (1.4-6.5); Neutrophils % (auto) 67.4 %; Platelet Count 254 K/uL (130-400); RDW Coefficient of Variation 12.3 % (11.5-14.5); RDW Standard Deviation 41.6 fL (36.4-46.3); Red Blood Count 4.79 M/uL (4.63-6.08); White Blood Count 8.32 K/ul (4.8-10.8)
[2022-05-25 18:06] LABS: INR 1.1 (0.9-1.1); Prothrombin Time 11.2 Seconds (9.0-12.0)
--- NOTE | 2022-05-25 18:11 | Emergency Department Note ---
History of Present Illness General Chief complaint: Rectal Bleed Stated complaint: BLOOD IN STOOL, SIGNIFICANT Time Seen by Provider: 05/25/22 17:29 Source: patient Mode of arrival: ambulatory Limitations: no limitations History of Present Illness Provider complaint: GI bleed This is a 67-year-old male presents emergency department due to concern for GI bleed. Patient states he recently had diverticulitis which she defines as pain in the left lower quadrant. This was not formally diagnosed on imaging and he did not take any antibiotics. He states he reverted to clear liquids for several days and his symptoms resolved. He states last episode of that was approximately week ago. He states today he felt a small cramping sense of pressure as though he needed to have a bowel movement but when he went to the bathroom he saw bright red blood. He denies noting any clots, and states he did not notice any additional stool. No prior history of GI bleed. He states he has had 2 prior colonoscopies, was told he had diverticulosis, no other polyps or abnormalities noted. Patient denies any recent change otherwise to digestion or bathroom habits. Patient denies fevers, chills, dizziness, lightheadedness, shortness of breath, abdominal pain. Patient does use aspirin and Plavix due to prior history of coronary artery stenting. No other anticoagulation. No other recent change in diet or medications. Patient did have an episode of bright red blood per rectum while here prior to my examination. I did confirm this myself after examining was left in the head in the bathroom. Nurse did send this to the lab for additional evaluation and did Hemoccult at bedside which was positive. Home Medications Medication Instructions Recorded Confirmed Type aspirin 81 mg tablet,delayed 81 mg PO QAM 06/21/21 05/25/22 History release atenolol 25 mg tablet 25 mg PO QAM 06/21/21 05/25/22 History clindamycin HCl 150 mg capsule 600 mg PO UD PRN Other 06/21/21 05/25/22 History clopidogrel 75 mg tablet (Plavix) 75 mg PO QAM 06/21/21 05/25/22 History magnesium oxide 400 mg PO QPM 06/21/21 05/25/22 History multivitamin 1 tab PO QPM 06/21/21 05/25/22 History nitroglycerin 0.4 mg sublingual 0.4 mg sublingual UD 06/21/21 05/25/22 History tablet (Nitrostat) omega 0-isz-spl-fish oil 1,200 mg 1 cap PO BID 06/21/21 05/25/22 History (144 mg-216 mg) capsule (Fish Oil) rosuvastatin 10 mg tablet 10 mg PO HS 06/21/21 05/25/22 History zinc 25 mg tablet 25 mg PO QPM 06/21/21 05/25/22 History Allergies Allergy/AdvReac Type Severity Reaction Status Date / Time amoxicillin AdvReac Severe GI SYMPTOMS Verified 05/25/22 20:04 Past Med/Surg History Medical History Atrial fibrillation HX Coronary artery disease s/p PCI of RCA 2004 PCI of proximal LCx with JOSE 2007 History of blood transfusion 1976 Hyperlipidemia SVT (supraventricular tachycardia) 2017-F/U DR ALONSO THOMPSON Surgical History H/O: vasectomy History of arthroscopy RIGHT KNEE History of cardiac cath 2007 2 [facility] [place] 2005 2 [facility] [place] History of colonoscopy History of herniorrhaphy History of repair of rotator cuff RIGHT History of total knee replacement LEFT S/P ablation of atrial fibrillation Family History Other No known health problems Social History Smoking Status: Never smoker Second Hand Exposure: No; Hx Alcohol Use: Yes Alcohol type: beer Hx Substance Use: No Preferred Language: [place] Communication Ability: Effective Service Engine Repairer Required: No Beliefs That Will Affect Care: None Current Living Situation: Spouse and Family current occupational status: retired Other Information That Helps Us Care for You: No Feels Safe at Home: Yes Safety Concerns: Feels Safe At This Time Assistive Devices: Glasses Review of Systems A total of 10 systems reviewed and were otherwise negative All systems reviewed & are unremarkable except as noted in HPI & below Physical Exam Vital Signs Vital Signs - 24 hr 05/25/22 16:48 05/25/22 17:40 05/25/22 18:00 Temperature 36.3 C L Temperature Source Temporal Artery Scan Pulse Rate 76 78 Pulse Rate from SpO2 Sensor 79 Respiratory Rate 18 12 Respiratory Effort / Characteristics Non-Labored Spontaneous Respiratory Depth Normal Respiratory Pattern Regular Blood Pressure 188/93 H 139/89 136/80 Blood Pressure Mean 124 105 98 Pulse Oximetry 99 97 Oxygen Delivery Method Room Air Sepsis Recent Fever Within 48 Hours No Sepsis New/Unexplained Change in Mental Status No Sepsis Action Taken by Nursing No Action Required 05/25/22 18:00 05/25/22 18:53 05/25/22 18:56 Temperature Temperature Source Pulse Rate 75 80 Pulse Rate from SpO2 Sensor 75 Respiratory Rate 13 12 Respiratory Effort / Characteristics Respiratory Depth Respiratory Pattern Blood Pressure 119/69 Blood Pressure Mean 85 Pulse Oximetry 97 Oxygen Delivery Method Room Air Sepsis Recent Fever Within 48 Hours Sepsis New/Unexplained Change in Mental Status Sepsis Action Taken by Nursing 05/25/22 18:56 05/25/22 19:00 05/25/22 19:00 Temperature Temperature Source Pulse Rate 76 77 Pulse Rate from SpO2 Sensor 75 78 Respiratory Rate 15 16 Respiratory Effort / Characteristics Respiratory Depth Respiratory Pattern Blood Pressure 125/67 Blood Pressure Mean 86 Pulse Oximetry 98 97 Oxygen Delivery Method Room Air Room Air Sepsis Recent Fever Within 48 Hours Sepsis New/Unexplained Change in Mental Status Sepsis Action Taken by Nursing 05/25/22 19:33 05/25/22 19:33 05/25/22 19:33 Temperature Temperature Source Pulse Rate 60 Pulse Rate from SpO2 Sensor 60 Respiratory Rate 17 Respiratory Effort / Characteristics Respiratory Depth Respiratory Pattern Blood Pressure 66/42 L 78/45 L Blood Pressure Mean 50 56 Pulse Oximetry 97 Oxygen Delivery Method Sepsis Recent Fever Within 48 Hours Sepsis New/Unexplained Change in Mental Status Sepsis Action Taken by Nursing 05/25/22 19:39 05/25/22 19:39 05/25/22 19:45 Temperature Temperature Source Pulse Rate 59 L 60 Pulse Rate from SpO2 Sensor 60 Respiratory Rate 12 14 Respiratory Effort / Characteristics Respiratory Depth Respiratory Pattern Blood Pressure 77/40 L Blood Pressure Mean 52 Pulse Oximetry 99 Oxygen Delivery Method Sepsis Recent Fever Within 48 Hours Sepsis New/Unexplained Change in Mental Status Sepsis Action Taken by Nursing 05/25/22 19:45 05/25/22 20:00 05/25/22 20:00 Temperature Temperature Source Pulse Rate 55 L Pulse Rate from SpO2 Sensor Respiratory Rate 14 Respiratory Effort / Characteristics Respiratory Depth Respiratory Pattern Blood Pressure 82/51 L 133/70 Blood Pressure Mean 61 91 Pulse Oximetry Oxygen Delivery Method Sepsis Recent Fever Within 48 Hours Sepsis New/Unexplained Change in Mental Status Sepsis Action Taken by Nursing 05/25/22 20:15 05/25/22 20:15 05/25/22 20:30 Temperature Temperature Source Pulse Rate 58 L 61 Pulse Rate from SpO2 Sensor 57 L 61 Respiratory Rate 6 L 14 Respiratory Effort / Characteristics Respiratory Depth Respiratory Pattern Blood Pressure 116/67 Blood Pressure Mean 83 Pulse Oximetry 98 99 Oxygen Delivery Method Sepsis Recent Fever Within 48 Hours Sepsis New/Unexplained Change in Mental Status Sepsis Action Taken by Nursing 05/25/22 20:31 05/25/22 20:31 05/25/22 20:45 Temperature Temperature Source Pulse Rate 67 67 Pulse Rate from SpO2 Sensor 66 68 Respiratory Rate 14 8 L Respiratory Effort / Characteristics Respiratory Depth Respiratory Pattern Blood Pressure 117/60 Blood Pressure Mean 79 Pulse Oximetry 99 97 Oxygen Delivery Method Sepsis Recent Fever Within 48 Hours Sepsis New/Unexplained Change in Mental Status Sepsis Action Taken by Nursing 05/25/22 20:45 05/25/22 21:00 05/25/22 21:30 Temperature Temperature Source Pulse Rate 69 71 Pulse Rate from SpO2 Sensor 69 71 Respiratory Rate 15 12 Respiratory Effort / Characteristics Respiratory Depth Respiratory Pattern Blood Pressure 107/63 Blood Pressure Mean 77 Pulse Oximetry 97 100 Oxygen Delivery Method Sepsis Recent Fever Within 48 Hours Sepsis New/Unexplained Change in Mental Status Sepsis Action Taken by Nursing GENERAL: alert, well appearing, well nourished, no distress, non-toxic EYE EXAM: normal conjunctiva, PERRL and EOM's grossly intact OROPHARYNX: no exudate, no erythema, lips, buccal mucosa, and tongue normal and mucous membranes are moist NECK: supple, no nuchal rigidity, no adenopathy, non-tender LUNGS: Clear to auscultation. Normal chest wall mechanics, no w/r/r HEART: no murmurs, S1 normal and S2 normal ABDOMEN: abdomen soft, non-tender, normo-active bowel sounds, no masses, no rebound or guarding. BACK: Back is symmetrical on inspection and there is no deformity, no midline tenderness, no CVA tenderness. SKIN: no rashes and no bruising UPPER EXTREMITIES: upper extremities are grossly normal. FROM, nml pulses b/l. LOWER EXTREMITIES: No pitting edema. FROM, nml pulses b/l. NEURO EXAM: Normal sensorium, cranial nerves II-XII grossly intact, normal sp eech, no gross weakness of arms, no gross weakness of legs. Gross sensation intact. Course Course 1901: Patient updated on results. Discussed with family. 1944: I was called to the room urgently as patient had a near syncopal/syncopal event when he was going to stand up to go to the bathroom. Patient states he felt lightheaded sitting up at bedside, and when he went to stand up he began to pass out, family immediately laid him back down on the bed. He states he now feels sweaty. He denies nausea, chest pain, palpitations, shortness of breath. Patient was initially found to be hypotensive and nursing started IV fluids. Blood pressure is improving. No hypoxia or dysrhythmia. We will repeat an H&H and add a type and screen as a precaution. Administered Medications Sodium Chloride (Nss 1000ml) 1,000 mls @ 125 mls/hr IV .Q8H GULSHAN Stop: 06/24/22 22:30 Last Admin: 05/25/22 23:13 Dose: 125 mls/hr Documented By: LMP Magnesium Oxide (Magnesium Oxide 400 Mg Tab) 400 mg PO QPM GULSHAN Stop: 06/24/22 22:30 Last Admin: 05/25/22 23:10 Dose: 400 mg Documented By: LMP Multivitamins (Multivitamin Tab) 1 tab PO QPM GULSHAN Stop: 06/24/22 22:30 Last Admin: 05/25/22 23:10 Dose: 1 tab Documented By: LMP Rosuvastatin Calcium (Rosuvastatin Calcium 10 Mg Tab) 10 mg PO HS GULSHAN Stop: 06/24/22 22:30 Last Admin: 05/25/22 23:11 Dose: 10 mg Documented By: LMP Zinc Sulfate (Zinc Sulfate 220 Mg Capsule) 220 mg PO QPM GULSHAN Stop: 06/24/22 22:30 Last Admin: 05/25/22 23:11 Dose: 220 mg Documented By: LMP Discontinued Medications Sodium Chloride (Nss 1000ml) 1,000 mls @ 999 mls/hr IV .Q1H1M ONE Stop: 05/25/22 20:35 Last Infusion: 05/25/22 22:15 Dose: 0 mls/hr Documented By: Admin: 05/25/22 19:42 Dose: 999 mls/hr Documented By: [id number] Ciprofloxacin (Cipro / D5w) 400 mg in 200 mls @ 100 mls/hr IV NOW STA; Protocol Stop: 05/25/22 21:42 Last Infusion: 05/25/22 23:02 Dose: 0 mls/hr Documented By: Admin: 05/25/22 20:55 Dose: 100 mls/hr Documented By: [id number] Metronidazole (Flagyl) 500 mg in 100 mls @ 100 mls/hr IV NOW STA Stop: 05/25/22 20:42 Last Infusion: 05/25/22 22:15 Dose: 0 mls/hr Documented By: Admin: 05/25/22 20:56 Dose: 100 mls/hr Documented By: [id number] Ioversol (Optiray 350 100ml) 83 ml IV ONCE ONE Stop: 05/25/22 18:35 Last Admin: 05/25/22 18:37 Dose: 83 ml Documented By: TEJ Medical Decision Making Differential Diagnosis Differential diagnosis includes etiologies such as diverticulosis, AVM, coagulop athy, colitis, inflammatory bowel disease, malignancy, Camille-Trevizo tear, esophagitis, peptic ulcer disease, variceal bleed, gastritis, epistaxis, fissure, hemorrhoids, as well as others were entertained. Medical Records Attestation: I reviewed the patient's medical records. Home Medications Current Medication List: was personally reviewed by me Laboratory Data Attestation: I reviewed the patient's lab results. Result diagrams: 05/25/22 20:40 05/25/22 17:35 Lab Results 05/25/22 05/25/22 05/25/22 Range/Units 17:35 17:35 17:35 WBC 8.32 (4.8-10.8) K/ul RBC 4.79 (4.63-6.08) M/uL Hgb 14.6 (14.0-18.0) g/dl Hct 43.8 (40.1-51.0) % MCV 91.4 (80.0-100.0) fL MCH 30.5 (25.0-34.0) pg MCHC 33.3 (32.0-36.0) g/dL RDW Std Deviation 41.6 (36.4-46.3) fL RDW Coeff of Tasha 12.3 (11.5-14.5) % Plt Count 254 (130-400) K/uL MPV 9.0 L (9.4-12.4) fL Immature Gran % (Auto) 0.6 % Neut % (Auto) 67.4 % Lymph % (Auto) 20.7 % Quay % (Auto) 7.7 % Eos % (Auto) 2.6 % Baso % (Auto) 1.0 % Neut # (Auto) 5.61 (1.4-6.5) K/uL Lymph # (Auto) 1.72 (1.2-3.4) K/uL Quay # (Auto) 0.64 (0.24-0.82) K/uL Eos # (Auto) 0.22 (0-0.50) K/uL Baso # (Auto) 0.08 (0-0.2) K/uL Immature Gran # (Auto) 0.05 H (0.00-0.02) K/uL PT 11.2 (9.0-12.0) Seconds INR 1.1 (0.9-1.1) Sodium 140 (136-145) mmol/L Potassium 4.1 (3.5-5.1) mmol/L Chloride 104 (98-107) mmol/L Carbon Dioxide 29 (21-32) mmol/L Anion Gap 7 (3-11) BUN 16 (6-23) mg/dl Creatinine 0.93 (0.6-1.4) mg/dl Est Cr Clr Drug Dosing 95.8 ml/min Est GFR ( Amer) 98.1 ml/min Est GFR (Non-Af Amer) 84.6 ml/min BUN/Creatinine Ratio 17.2 (10-20) Glucose 94 (70-99(Fasting)) mg/dl Calcium 9.3 (8.5-10.1) mg/dl Magnesium 2.2 (1.7-2.4) mg/dl Total Bilirubin 0.3 (0.2-1.0) mg/dl AST 29 (13-39) U/L ALT 30 (7-52) U/L Alkaline Phosphatase 49 (34-104) U/L Troponin I High Sens 4.3 (0-20) pg/ml Total Protein 7.6 (6.0-8.3) gm/dl Albumin 4.2 (3.4-5.0) gm/dl Globulin 3.4 (2.5-4.0) gm/dl Albumin/Globulin Ratio 1.2 (0.9-2) Lipase 44 (11-82) U/L SARS-CoV-2, RNA, NAAT (NEGATIVE) Blood Type Antibody Screen 05/25/22 05/25/22 05/25/22 Range/Units 20:02 20:28 20:40 WBC (4.8-10.8) K/ul RBC (4.63-6.08) M/uL Hgb 11.7 L D (14.0-18.0) g/dl Hct 34.4 L (40.1-51.0) % MCV (80.0-100.0) fL MCH (25.0-34.0) pg MCHC (32.0-36.0) g/dL RDW Std Deviation (36.4-46.3) fL RDW Coeff of Tasha (11.5-14.5) % Plt Count (130-400) K/uL MPV (9.4-12.4) fL Immature Gran % (Auto) % Neut % (Auto) % Lymph % (Auto) % Quay % (Auto) % Eos % (Auto) % Baso % (Auto) % Neut # (Auto) (1.4-6.5) K/uL Lymph # (Auto) (1.2-3.4) K/uL Quay # (Auto) (0.24-0.82) K/uL Eos # (Auto) (0-0.50) K/uL Baso # (Auto) (0-0.2) K/uL Immature Gran # (Auto) (0.00-0.02) K/uL PT (9.0-12.0) Seconds INR (0.9-1.1) Sodium (136-145) mmol/L Potassium (3.5-5.1) mmol/L Chloride (98-107) mmol/L Carbon Dioxide (21-32) mmol/L Anion Gap (3-11) BUN (6-23) mg/dl Creatinine (0.6-1.4) mg/dl Est Cr Clr Drug Dosing ml/min Est GFR ( Amer) ml/min Est GFR (Non-Af Amer) ml/min BUN/Creatinine Ratio (10-20) Glucose (70-99(Fasting)) mg/dl Calcium (8.5-10.1) mg/dl Magnesium (1.7-2.4) mg/dl Total Bilirubin (0.2-1.0) mg/dl AST (13-39) U/L ALT (7-52) U/L Alkaline Phosphatase (34-104) U/L Troponin I High Sens (0-20) pg/ml Total Protein (6.0-8.3) gm/dl Albumin (3.4-5.0) gm/dl Globulin (2.5-4.0) gm/dl Albumin/Globulin Ratio (0.9-2) Lipase (11-82) U/L SARS-CoV-2, RNA, NAAT NEGATIVE (NEGATIVE) Blood Type A Positive Antibody Screen NEGATIVE Imaging Data Radiologist's Impression: Abdomen/Pelvis CT 05/25/22 18:02 CT abd pelvis IV con only CLINICAL HISTORY: GI bleed, recent LLQ pain TECHNIQUE: Helical axial images of the abdomen and pelvis were obtained and displayed. Automated dose lowering techniques and/or adjustment according to patient size were utilized for this exam. This exam was performed with intravenous contrast. CT DOSE: 551.60 mGy.cm COMPARISON: None available at the time of this dictation. FINDINGS: Lower chest: No acute abnormality. Liver: Unremarkable. No focal lesions are seen. Gallbladder and biliary tree: No calcified gallstones. Normal caliber wall. No intra- or extrahepatic biliary ductal dilation. Pancreas: Unremarkable, no focal lesions. Spleen: Splenule is incidentally noted. Adrenals: Unremarkable. Kidneys and ureters: Parapelvic cysts are seen bilaterally. Bladder: Unremarkable. Reproductive organs: Unremarkable. Bowel: Numerous diverticuli are seen and there is focal fat stranding and a portion of the descending colon. Lymph nodes Retroperitoneal: Unremarkable. Pelvic: Unremarkable. Mesenteric: Unremarkable. Peritoneum: Normal. Vessels: Unremarkable. Abdominal wall: Bilateral fat-containing inguinal hernias are seen. Fat- containing umbilical hernia is seen. Bones: Degenerative changes in the visualized spine. IMPRESSION: Findings are compatible with acute diverticulitis without evidence of perfor ation or abscess. ACT 112: Negative or not required by law. Electronically signed by: Eloy Morales M.D. 05/25/2022 6:56 PM MDM Narrative An order was placed for continuous cardiac monitoring. The monitor shows a rate of _82__ with _normal sinus_ rhythm. This is a 67-year-old male presents emergency department due to concern for acute GI bleed. Patient denies abdominal pain, fevers, although did recently admit to left lower quadrant abdominal pain approximately a week ago. No significant prior GI history. He was afebrile and hemodynamically stable on arrival. Labs are drawn and sent, he was started on IV fluids and patient sent for CT imaging. CT did confirm diverticulitis without perforation or abscess, no evidence of active GI bleed. Patient did have recurrent episode here. After discussion at bedside with patient and family of all results, we discussed monitoring here as a precaution to watch for further bleeding or evolving symptoms. They verbalized understanding were in agreement with the plan. Patient started on IV antibiotics given concern for persistent diverticulitis despite no pain. Patient did have recurrent episode here of GI bleed and at one point did have orthostatic symptoms and I suspect a vasovagal response with near syncope and hypotension. Patient recovered quickly and remained hemodynamically stable throughout. Repeat H&H did show a slight drop following the recurrent episodes here. I suspect given patient's use of antiplatelet therapy due to prior cardiac history, he is having ongoing bleeding. I did not feel patient required emergent transfer for IR intervention at this time although I did discuss with him should his bleeding persist or worsen this may be discussed with him. No need for emergent blood transfusion at this time. Given the holiday, he preferred to be here closer to family and home which I feel is reasonable at this time. Case discussed with hospitalist for additional evaluation and management. Impression & Plan Acute GI bleeding, Diverticulitis Discharge Plan Visit Data Chief Complaint: Rectal Bleed Stated Complaint: BLOOD IN STOOL, SIGNIFICANT ED Provider: Dinorah Lewis Discharge Problem: Acute GI bleeding, Diverticulitis Patient Disposition: Admitted As Inpatient Discharge Instructions Interventions: ED Discharge Assessment Last Done: 05/25/22 22:26
[2022-05-25 18:14] LABS: Albumin Globulin Ratio 1.2 (0.9-2); Albumin Level 4.2 gm/dl (3.4-5.0); BUN Creatinine Ratio 17.2 (10-20); Bilirubin,Total 0.3 mg/dl (0.2-1.0); Calcium 9.3 mg/dl (8.5-10.1); Creatinine Clr Calc Pharmacy 95.8 ml/min; Est GFR (African American) 98.1 ml/min; Est GFR (Non-African American) 84.6 ml/min; Globulin 3.4 gm/dl (2.5-4.0); Magnesium 2.2 mg/dl (1.7-2.4); Potassium 4.1 mmol/L (3.5-5.1); Total Protein 7.6 gm/dl (6.0-8.3)
[2022-05-25 18:20] LABS: Troponin I High Sensitivity 4.3 pg/ml (0-20)
[2022-05-25] MEDS ORDERED: OPTIRAY 350 100ml IV ONE (18:34)
--- NOTE | 2022-05-25 18:59 | CT Scan Report ---
CT abd pelvis IV con only CLINICAL HISTORY: GI bleed, recent LLQ pain TECHNIQUE: Helical axial images of the abdomen and pelvis were obtained and displayed. Automated dose lowering techniques and/or adjustment according to patient size were utilized for this exam. This e xam was performed with intravenous contrast. CT DOSE: 551.60 mGy.cm COMPARISON: None available at the time of this dictation. FINDINGS: Lower chest: No acute abnormality. Liver: Unremarkable. No focal lesions are seen. Gallbladder and biliary tree: No calcified gallstones. Normal caliber wall. No intra- or extrahepatic biliary ductal dilation. Pancreas: Unremarkable, no focal lesions. Spleen: Splenule is incidentally noted. Adrenals: Unremarkable. Kidneys and ureters: Parapelvic cysts are seen bilaterally. Bladder: Unremarkable. Reproductive organs: Unremarkable. Bowel: Numerous diverticuli are seen and there is focal fat stranding and a portion of the descending colon. Lymph nodes Retroperitoneal: Unremarkable. Pelvic: Unremarkable. Mesenteric: Unremarkable. Peritoneum: Normal. Vessels: Unremarkable. Abdominal wall: Bilateral fat-containing inguinal hernias are seen. Fat-containing umbilical hernia i s seen. Bones: Degenerative changes in the visualized spine. IMPRESSION: Findings are compatible with acute diverticulitis without evidence of perforation or abscess. ACT 112: Negative or not required by law. Electronically signed by: Eloy Morales M.D. 05/25/2022 6:56 PM
[2022-05-25] MEDS ORDERED: SODIUM CHLORIDE 0.9% 1000ML 1,000 ML IV ONE (19:35)
[2022-05-25] MEDS ORDERED: CIPROFLOXACIN / D5W 400 MG/200 ML BAG IV STA (19:43)
[2022-05-25] MEDS ORDERED: metroNIDAZOLE 500 MG/100 ML BAG IV STA (19:43)
[2022-05-25 20:51] LABS: Hematocrit (blood only) 34.4 % (40.1-51.0); Hemoglobin 11.7 g/dl (14.0-18.0)
--- NOTE | 2022-05-25 22:17 | History and Physical Report ---
DATE OF ADMISSION: 05/25/2022 CHIEF COMPLAINT: Rectal bleed. HISTORY OF PRESENT ILLNESS: A 67-year-old male with past medical history significant for hyperlipidemia, history of coronary artery disease, status post stent, history of paroxysmal supraventricular tachycardia, hypertension, bicuspid aortic valve, history of atrial fibrillation, status post ablation, presents with rectal bleed started today evening, several episodes. He had couple of episodes in the ER, hemodynamically stable. Denies any abdominal pain. It seems that he had previous colonoscopy and was told he has diverticulosis and the patient has no history of prior GI bleed. In the ER, when he stood up and was going to bathroom, he had a near syncopal episode seems blood pressure dropped at that time. Currently lying in the bed, is comfortable. Denies any dizziness. Currently, no headache, no blurred vision or double vision. No earache, no runny nose, no sore throat, no cough, no recent weight gain, weight loss, no night sweats. No chest pain, no shortness of breath. No nausea, no abdominal pain. Today with blood in stools had diarrhea. Normal bladder movements. No hematuria or burning micturition. No rash, no swelling in the legs. Otherwise, ambulates fine. Currently, hemodynamically stable. ALLERGIES: AMOXICILLIN. PAST MEDICAL HISTORY: As mentioned above. PAST SURGICAL HISTORY: Ablation of heart dysrhythmia in 2008, ablation of heart dysrhythmia in 2010, left total knee arthroplasty in 2012, left heart catheterization in 2007, colonoscopy 2006, bilateral cataract surgery in July and July 2021, right coronary stents in 2004. Repair of inguinal hernia, left in 2017. Vasectomy in 1995. MEDICATIONS: The patient is on aspirin 81 mg p.o. daily, atenolol 25 mg p.o. daily, clindamycin 600 mg p.r.n., Plavix 75 mg p.o. daily, magnesium oxide 400 mg p.o. p.m., multivitamin 1 tablet p.o. daily, Nitrostat 0.4 mg sublingual p.r.n., fish oil 1 capsule p.o. b.i.d., rosuvastatin 10 mg p.o. at bedtime, zinc 25 mg p.o. p.m. FAMILY HISTORY: Significant for father had Hodgkin cancer, at age of 53. SOCIAL HISTORY: , no smoking. Alcohol, a beer a day and no drug use. REVIEW OF SYSTEMS: As per HPI. Rest of the review of systems is negative. PHYSICAL EXAMINATION: GENERAL: The patient is of moderate build, not in acute distress. VITAL SIGNS: Temperature 36.3, pulse 77, respiratory rate 16, blood pressure 125/67, oxygen 97% on room air. HEENT: Pupils equal, round and reactive to light. Oral mucosa moist. NECK: No JVD, no neck masses. CARDIOVASCULAR: S1 and S2 heard. Regular rate and rhythm. RESPIRATORY SYSTEM: Normal AP diameter. No accessory muscle use. No wheezing, no crackles. ABDOMEN: Soft, bowel sounds present, nontender, no distention. No guarding or rigidity. CENTRAL NERVOUS SYSTEM: Cranial nerves II-XII grossly intact. Alert and oriented. Speech is clear. No facial droop. Obeys simple commands. Insight is good. Moves extremities. EXTREMITIES: No edema, no erythema. LABORATORY DATA: WBC 8.3, hemoglobin 11.7, hematocrit 34.4, platelets 254. PT 11.2, INR 1.1. Sodium 140, potassium 4.1, chloride 104, bicarb 29, BUN 16, creatinine 0.9, serum glucose 94, calcium 9.3, magnesium 2.2, total bilirubin 0.3, AST 29, ALT 30, alkaline phosphatase 49. Troponin I high sensitivity 4.3, lipase 44. SARS-CoV-2 rapid test negative. IMAGING DATA: CT of abdomen and pelvis with IV contrast, findings are compatible with acute diverticulitis without evidence of perforation or abscess. EKG: Normal sinus rhythm at a rate of 77, no acute ST changes seen. QTc 434. ASSESSMENT AND PLAN: This 67-year-old male presents with rectal bleed and found to have acute diverticulitis. 1. Rectal bleed, most likely diverticular bleed. The patient has no abdominal pain. . Initially when he came in, it was stable at 14.64, repeat is 11.7. He had couple of more bloody bowel movements in the ER. Blood consent obtained. We will follow H and H q. 6 hours. Closely monitor in the med tele. GI consult. Will keep him n.p.o., IV fluids. 2. Near syncope. The patient had a near syncopal episode when he was trying to get up in the ER, probably vasovagal mediated. Will monitor in med tele. Getting fluids. If any concern, obtain consult from cardiology and echo. 3. History of coronary artery disease, status post stent. Continue statin and atenolol with holding parameters. Holding aspirin and Plavix for gastrointestinal bleed. 4. Diverticulitis. No perforation seen. No abscess seen. He is afebrile. No significant abdominal pain. Starting on Cipro and Flagyl, n.p.o., IV fluids. GI consulted. Colonoscopy as per GI. 5. History of atrial fibrillation, status post ablation. 6. History of paroxysmal supraventricular tachycardia, on atenolol. 7. Hypertension, on atenolol. We will monitor the blood pressure. 8. Hyperlipidemia, on statin. 9. Deep venous thrombosis prophylaxis: Sequential compression devices for now. DISPOSITION: Closely monitor in the [facility] tele. PT/OT prior to discharge. Social service to help with discharge planning. Job ID: [id number] MTDD
[2022-05-25] MEDS ORDERED: ACETAMINOPHEN 325 MG TAB PO PRN (22:31)
[2022-05-25] MEDS ORDERED: NITROGLYCERIN SL 0.4 MG/TAB TAB SL PRN (22:31)
[2022-05-25] MEDS: MAGNESIUM OXIDE 400 MG TAB PO SCH (23:10)
[2022-05-25] MEDS: MULTIVITAMIN TAB PO SCH (23:10)
[2022-05-25] MEDS: ROSUVASTATIN CALCIUM 10 MG TAB PO SCH (23:11)
[2022-05-25] MEDS: ZINC SULFATE 220 MG CAPSULE PO SCH (23:11)
[2022-05-25] MEDS: SODIUM CHLORIDE 0.9% 1000ML 1,000 ML IV SCH (23:13)
[2022-05-26 05:37] LABS: Basophils # (auto) 0.03 K/uL (0-0.2); Basophils % (auto) 0.4 %; Eosinophils # (auto) 0.05 K/uL (0-0.50); Eosinophils % (auto) 0.6 %; Hematocrit (blood only) 30.7 % (40.1-51.0); Hemoglobin 10.5 g/dl (14.0-18.0); Immature Granulocytes # (auto) 0.06 K/uL (0.00-0.02); Immature Granulocytes % (auto) 0.7 %; Lymphocytes # (auto) 1.71 K/uL (1.2-3.4); Mean Corpuscular Hemoglobin 30.9 pg (25.0-34.0); Mean Corpuscular Hgb Conc 34.2 g/dL (32.0-36.0); Mean Corpuscular Volume 90.3 fL (80.0-100.0); Mean Platelet Volume 9.1 fL (9.4-12.4); Monocytes # (auto) 0.54 K/uL (0.24-0.82); Monocytes % (auto) 6.3 %; Neutrophils # (auto) 6.15 K/uL (1.4-6.5); Platelet Count 185 K/uL (130-400); RDW Coefficient of Variation 12.4 % (11.5-14.5); RDW Standard Deviation 41.1 fL (36.4-46.3); White Blood Count 8.54 K/ul (4.8-10.8)
[2022-05-26] MEDS: metroNIDAZOLE 500 MG/100 ML BAG IV SCH ×3 (05:48→22:50)
[2022-05-26 06:24] LABS: Calcium 7.7 mg/dl (8.5-10.1); Creatinine Clr Calc Pharmacy 116.6 ml/min; Est GFR (African American) 109.4 ml/min; Est GFR (Non-African American) 94.4 ml/min; Potassium 4.2 mmol/L (3.5-5.1)
[2022-05-26] MEDS: CIPROFLOXACIN / D5W 400 MG/200 ML BAG IV SCH ×2 (07:44→20:35)
[2022-05-26] MEDS: SODIUM CHLORIDE 0.9% 1000ML 1,000 ML IV SCH ×2 (07:45→18:35)
[2022-05-26] MEDS: ATENOLOL 25 MG TABLET PO SCH (09:49)
[2022-05-26 11:05] LABS: Hematocrit (blood only) 29.6 % (40.1-51.0)
--- NOTE | 2022-05-26 11:29 | Hospitalist Progress Note ---
Date of Service May 26, 2022 Assessment & Plan (1) Lower GI bleed: (2) Diverticulitis: (3) Acute blood loss anemia: Plan: Patient presents with history of bright red blood per rectum since 1 day; several episodes. Hypotensive in the ED. Had near syncopal when he was trying to get up in the ED. Hemoglobin dropped from 14-10 since admission. BUN/creatinine within normal limits Last colonoscopy in 2017 shows diverticulosis throughout the colon. CT abdomen and pelvis on admission showed findings consistent with acute diverticulitis without evidence of perforation/abscess. Abdominal examination shows soft, nontender bowel. Plan; Discussed with GI on-call; patient started on clear liquid diet. To be evaluated today afternoon by GI; Monitor H&H every 8 hours; transfuse if hypotensive or hemoglobin less than 7 Continue on antibiotics for now; will provide 5-day course Continue on IV fluids. -Aspirin and Plavix on hold; will follow-up on GIs recommendation regarding resuming them. Plan Chronic conditions; CAD status post stentaspirin and Plavix currently on hold. No complaint of chest pain. History of atrial fibrillation, status post ablation. History of paroxysmal supraventricular tachycardia, on atenolol. Hypertension, on atenolol. We will monitor the blood pressure. Hyperlipidemia, on statin. Deep venous thrombosis prophylaxis: Sequential compression devices for now. Full code Admission and Anticipated Discharge Date Admission Date: May 25, 2022 Subjective Patient seen and examined at bedside. He is comfortable; not in any distress. No complaint of abdominal pain or discomfort. His last bowel movement was yesterday at 10 PM; reports that it was bloody. Review of Systems Review of Systems: All systems reviewed & are unremarkable except as noted in Subjective Physical Exam Physical Exam: Constitutional: WD/WN, vitals as above, NAD, sitting up in bed, pleasant, conversing easily Respiratory: normal respiratory effort, lungs clear to auscultation, no wheeze, rales, rhonchi. Normal insp/exp effort, no accessory muscle use Cardiovascular: RRR, no murmur, no edema Vessels: no JVD or carotid bruit Chest: normal inspection of chest Abdomen: normal bowel sounds, soft, nontender, no hepatosplenomegaly Musculoskeletal: no cyanosis or clubbing, extremities motor strength 5/5 Skin: no rashes, warm and dry normal turgor Neurologic: PERRL, EOMI, accommodation nl, no face palsy, no dysarthria CN's II- XI intact bilaterally and moves all extremities Psychiatric: A+Ox3, euthymic affect Lymphatic: no cervical or axillary lymphadenopathy : deferred Results & Data Results & Data ([facility]) Vital Signs (Past 12 Hours) Vital Signs Temp Pulse Pulse Resp BP Pulse Ox O2 Del Method 05/26/22 08:05 36.4 C L 64 18 137/70 98 Room Air 05/26/22 03:00 36.4 C L 72 20 112/67 96 Room Air 05/26/22 00:00 76 Laboratory Results Laboratory Results WBC 8.54 K/ul (4.8-10.8) 05/26/22 05:22 RBC 3.40 M/uL (4.63-6.08) L 05/26/22 05:22 Hgb 10.0 g/dl (14.0-18.0) L 05/26/22 10:56 Hct 29.6 % (40.1-51.0) L 05/26/22 10:56 MCV 90.3 fL (80.0-100.0) 05/26/22 05:22 MCH 30.9 pg (25.0-34.0) 05/26/22 05:22 MCHC 34.2 g/dL (32.0-36.0) 05/26/22 05:22 RDW Std Deviation 41.1 fL (36.4-46.3) 05/26/22 05:22 RDW Coeff of Tasha 12.4 % (11.5-14.5) 05/26/22 05:22 Plt Count 185 K/uL (130-400) 05/26/22 05:22 MPV 9.1 fL (9.4-12.4) L 05/26/22 05:22 Immature Gran % (Auto) 0.7 % 05/26/22 05:22 Neut % (Auto) 72.0 % 05/26/22 05:22 Lymph % (Auto) 20.0 % 05/26/22 05:22 Walton % (Auto) 6.3 % 05/26/22 05:22 Eos % (Auto) 0.6 % 05/26/22 05:22 Baso % (Auto) 0.4 % 12/25/22 05:22 Neut # (Auto) 6.15 K/uL (1.4-6.5) 05/26/22 05:22 Lymph # (Auto) 1.71 K/uL (1.2-3.4) 05/26/22 05:22 Walton # (Auto) 0.54 K/uL (0.24-0.82) 05/26/22 05:22 Eos # (Auto) 0.05 K/uL (0-0.50) 05/26/22 05:22 Baso # (Auto) 0.03 K/uL (0-0.2) 05/26/22 05:22 Immature Gran # (Auto) 0.06 K/uL (0.00-0.02) H 05/26/22 05:22 PT 11.2 Seconds (9.0-12.0) 05/25/22 17:35 INR 1.1 (0.9-1.1) 05/25/22 17:35 Sodium 138 mmol/L (136-145) 05/26/22 05:22 Potassium 4.2 mmol/L (3.5-5.1) 05/26/22 05:22 Chloride 108 mmol/L (98-107) H 05/26/22 05:22 Carbon Dioxide 27 mmol/L (21-32) 05/26/22 05:22 Anion Gap 3 (3-11) 05/26/22 05:22 BUN 19 mg/dl (6-23) 05/26/22 05:22 Creatinine 0.76 mg/dl (0.6-1.4) 05/26/22 05:22 Est Cr Clr Drug Dosing 116.6 ml/min 05/26/22 05:22 Est GFR ( Amer) 109.4 ml/min 05/26/22 05:22 Est GFR (Non-Af Amer) 94.4 ml/min 05/26/22 05:22 BUN/Creatinine Ratio 25.0 (10-20) H 05/26/22 05:22 Glucose 128 mg/dl (70-99(Fasting)) H 05/26/22 05:22 Calcium 7.7 mg/dl (8.5-10.1) L 05/26/22 05:22 Magnesium 2.0 mg/dl (1.7-2.4) 05/26/22 05:22 Total Bilirubin 0.3 mg/dl (0.2-1.0) 05/25/22 17:35 AST 29 U/L (13-39) 05/25/22 17:35 ALT 30 U/L (7-52) 05/25/22 17:35 Alkaline Phosphatase 49 U/L (34-104) 05/25/22 17:35 Troponin I High Sens 4.3 pg/ml (0-20) 05/25/22 17:35 Total Protein 7.6 gm/dl (6.0-8.3) 05/25/22 17:35 Albumin 4.2 gm/dl (3.4-5.0) 05/25/22 17:35 Globulin 3.4 gm/dl (2.5-4.0) 05/25/22 17:35 Albumin/Globulin Ratio 1.2 (0.9-2) 05/25/22 17:35 Lipase 44 U/L (11-82) 05/25/22 17:35 SARS-CoV-2, RNA, NAAT NEGATIVE (NEGATIVE) 05/25/22 20:02 Blood Type A Positive 05/25/22 20:28 Antibody Screen NEGATIVE 05/25/22 20:28 Impressions Abdomen/Pelvis CT 05/25/22 18:02 CT abd pelvis IV con only CLINICAL HISTORY: GI bleed, recent LLQ pain TECHNIQUE: Helical axial images of the abdomen and pelvis were obtained and displayed. Automated dose lowering techniques and/or adjustment according to patient size were utilized for this exam. This exam was performed with intravenous contrast. CT DOSE: 551.60 mGy.cm COMPARISON: None available at the time of this dictation. FINDINGS: Lower chest: No acute abnormality. Liver: Unremarkable. No focal lesions are seen. Gallbladder and biliary tree: No calcified gallstones. Normal caliber wall. No intra- or extrahepatic biliary ductal dilation. Pancreas: Unremarkable, no focal lesions. Spleen: Splenule is incidentally noted. Adrenals: Unremarkable. Kidneys and ureters: Parapelvic cysts are seen bilaterally. Bladder: Unremarkable. Reproductive organs: Unremarkable. Bowel: Numerous diverticuli are seen and there is focal fat stranding and a portion of the descending colon. Lymph nodes Retroperitoneal: Unremarkable. Pelvic: Unremarkable. Mesenteric: Unremarkable. Peritoneum: Normal. Vessels: Unremarkable. Abdominal wall: Bilateral fat-containing inguinal hernias are seen. Fat- containing umbilical hernia is seen. Bones: Degenerative changes in the visualized spine. IMPRESSION: Findings are compatible with acute diverticulitis without evidence of perforation or abscess. ACT 112: Negative or not required by law. Electronically signed by: Eloy Morales M.D. 05/25/2022 6:56 PM
--- NOTE | 2022-05-26 14:13 | Gastrointestinal Consultation ---
Date of Consultation May 26, 2022 History of Present Illness Reason for Consultation: LGIB Attending Physician: Hermelindo Bradley MD History of Present Illness 67 yo M h/o a fib on ASA + Plavix, fish now admit yesterday for 1 day history of painless BRBPR. Hypotensive on hang with systolic in the 60's, quickly resolved with fluids. Episode of BRBPR in ER. Hgb 11.7 on admit, fell to 10 this morning. Normotensive overnight. CT in ER with IV con shows focal left sided colitis. Cscopy x 2, last in 2017 with tics. ? Diverticulitis 1 week ago - self diagnosed, resolved with clears, pt did not seek medicatl attention. Placed on cipro + flagyl by hospitalist. Pt without rectal bleeding today. Past Med/Surg History Medical History Atrial fibrillation HXCoronary artery disease s/p PCI of RCA 2004 PCI of proximal LCx with JOSE 2007 History of blood transfusion 1977Hyperlipidemia SVT (supraventricular tachycardia) 2016-F/U DR ALONSO THOMPSON Surgical History H/O: vasectomy History of arthroscopy RIGHT KNEEHistory of cardiac cath 2008 2 STENTS PLACED-[facility] 2006 2 [facility] History of herniorrhaphy History of repair of rotator cuff RIGHTHistory of total knee replacement LEFTS/P ablation of atrial fibrillation Family History Other No known health problems Social History Smoking Status: Never smoker Second Hand Exposure: No; Hx Alcohol Use: Yes Alcohol type: beer Hx Substance Use: No Preferred Language: Belarusian Communication Ability: Effective Molding Technician Required: No Beliefs That Will Affect Care: None Current Living Situation: Spouse and Family current occupational status: retired Other Information That Helps Us Care for You: No Feels Safe at Home: Yes Safety Concerns: Feels Safe At This Time Assistive Devices: Glasses Review of Systems A total of 10 systems reviewed and were otherwise negative All systems reviewed & are unremarkable except as noted in HPI & below Physical Exa GENERAL: alert, well appearing, well nourished, no distress, non-toxic EYE EXAM: normal conjunctiva, PERRL and EOM's grossly intact OROPHARYNX: no exudate, no erythema, lips, buccal mucosa, and tongue normal and mucous membranes are moist NECK: supple, no nuchal rigidity, no adenopathy, non-tender LUNGS: Clear to auscultation. Normal chest wall mechanics, no w/r/r HEART: no murmurs, S1 normal and S2 normal ABDOMEN: abdomen soft, non-tender, normo-active bowel sounds, no masses, no rebound or guarding. BACK: Back is symmetrical on inspection and there is no deformity, no midline tenderness, no CVA tenderness. SKIN: no rashes and no bruising UPPER EXTREMITIES: upper extremities are grossly normal. FROM, nml pulses b/l. LOWER EXTREMITIES: No pitting edema. FROM, nml pulses b/l. NEURO EXAM: Normal sensorium, cranial nerves II-XII grossly intact, normal speech, no gross weakness of arms, no gross weakness of legs. Gross sensation intact. A/P: LGIB Ticitis ? Ischemic colitis - Follow hgb overnight. Clears. Consider csocpy. Allergies Allergy/AdvReac Type Severity Reaction Status Date / Time amoxicillin AdvReac Severe GI SYMPTOMS Verified 05/25/22 20:04 Home Medications Medication Instructions Recorded Confirmed Type aspirin 81 mg tablet,delayed 81 mg PO QAM 06/21/21 05/25/22 History release atenolol 25 mg tablet 25 mg PO QAM 06/21/21 05/25/22 History clindamycin HCl 150 mg capsule 600 mg PO UD PRN Other 06/21/21 05/25/22 History clopidogrel 75 mg tablet (Plavix) 75 mg PO QAM 06/21/21 05/25/22 History magnesium oxide 400 mg PO QPM 06/21/21 05/25/22 History multivitamin 1 tab PO QPM 06/21/21 05/25/22 History nitroglycerin 0.4 mg sublingual 0.4 mg sublingual UD 06/21/21 05/25/22 History tablet (Nitrostat) omega 9-zdh-xzm-fish oil 1,200 mg 1 cap PO BID 06/21/21 05/25/22 History (144 mg-216 mg) capsule (Fish Oil) rosuvastatin 10 mg tablet 10 mg PO HS 06/21/21 05/25/22 History zinc 25 mg tablet 25 mg PO QPM 06/21/21 05/25/22 History Patient History Medical History Atrial fibrillation HX Coronary artery disease s/p PCI of RCA 2004 PCI of proximal LCx with JOSE 2007 History of blood transfusion 1977 Hyperlipidemia SVT (supraventricular tachycardia) 2017-F/U DR ALONSO THOMPSON Surgical History H/O: vasectomy History of arthroscopy RIGHT KNEE History of cardiac cath 2007 2 STENTS PLACED-[facility] [place] 2005 2 STENTS PLACED [facility] [place] History of colonoscopy History of herniorrhaphy History of repair of rotator cuff RIGHT History of total knee replacement LEFT S/P ablation of atrial fibrillation Family History Other No known health problems Social History Smoking Status: Never smoker Second Hand Exposure: No; Hx Alcohol Use: Yes Alcohol type: beer Hx Substance Use: No Preferred Language: Belarusian Communication Ability: Effective Molding Technician Required: No Beliefs That Will Affect Care: None Current Living Situation: Spouse and Family current occupational status: retired Other Information That Helps Us Care for You: No Feels Safe at Home: Yes Safety Concerns: Feels Safe At This Time Assistive Devices: None Results & Data ([facility]) Vital Signs (Past 12 Hours) Vital Signs Temp Pulse Pulse Resp BP Pulse Ox O2 Del Method 05/26/22 06:06 74 05/26/22 11:38 36.3 C L 52 L 18 108/62 98 Room Air 05/26/22 08:05 36.4 C L 64 18 137/70 98 Room Air 05/26/22 03:00 36.4 C L 72 20 112/67 96 Room Air
--- NOTE | 2022-05-26 14:35 | Electrocardiogram Report ---
Test Reason : Blood Pressure : / mmHG Vent. Rate : 077 BPM Atrial Rate : 077 BPM P-R Int : 176 ms QRS Dur : 090 ms QT Int : 384 ms P-R-T Axes : 005 -23 069 degrees QTc Int : 434 ms Poor data quality, interpretation may be adversely affected Normal sinus rhythm RSR' or QR pattern in V1 suggests right ventricular conduction delay Normal ECG When compared with ECG of 09-JUN-2016 12:24, Vent. rate has increased BY 26 BPM Confirmed by Taj Hyatt ([id number]) on 05/26/2022 2:34:41 PM Referred By: REFERRED SELF Confirmed By:Taj Hyatt
[2022-05-26] MEDS: MULTIVITAMIN TAB PO SCH (19:05)
[2022-05-26] MEDS: MAGNESIUM OXIDE 400 MG TAB PO SCH (19:06)
[2022-05-26] MEDS: ROSUVASTATIN CALCIUM 10 MG TAB PO SCH (19:06)
[2022-05-26] MEDS ORDERED: bisacodyL 5 MG TABEC PO ONE (19:20)
[2022-05-26] MEDS ORDERED: METOCLOPRAMIDE HCL INJ 5 MG/ML 2 ML VIAL IV ONE (19:20)
[2022-05-26] MEDS ORDERED: LAVAGE SOLUTION 4000ML PO SCH (20:00)
[2022-05-26 20:29] LABS: Hematocrit (blood only) 29.9 % (40.1-51.0)
[2022-05-26] MEDS: ZINC SULFATE 220 MG CAPSULE PO SCH (21:12)
[2022-05-27 04:42] LABS: Basophils # (auto) 0.05 K/uL (0-0.2); Eosinophils # (auto) 0.15 K/uL (0-0.50); Hematocrit (blood only) 26.4 % (40.1-51.0); Hemoglobin 8.8 g/dl (14.0-18.0); Immature Granulocytes # (auto) 0.03 K/uL (0.00-0.02); Immature Granulocytes % (auto) 0.6 %; Lymphocytes # (auto) 1.78 K/uL (1.2-3.4); Lymphocytes % (auto) 35.2 %; Mean Corpuscular Hemoglobin 30.6 pg (25.0-34.0); Mean Corpuscular Hgb Conc 33.3 g/dL (32.0-36.0); Mean Corpuscular Volume 91.7 fL (80.0-100.0); Monocytes # (auto) 0.42 K/uL (0.24-0.82); Monocytes % (auto) 8.3 %; Neutrophils # (auto) 2.62 K/uL (1.4-6.5); Neutrophils % (auto) 51.9 %; Platelet Count 145 K/uL (130-400); RDW Coefficient of Variation 12.5 % (11.5-14.5); RDW Standard Deviation 42.1 fL (36.4-46.3); Red Blood Count 2.88 M/uL (4.63-6.08); White Blood Count 5.05 K/ul (4.8-10.8)
[2022-05-27 05:20] LABS: Albumin Globulin Ratio 1.5 (0.9-2); Albumin Level 3.2 gm/dl (3.4-5.0); BUN Creatinine Ratio 17.5 (10-20); Bilirubin,Total 0.4 mg/dl (0.2-1.0); Calcium 7.9 mg/dl (8.5-10.1); Creatinine Clr Calc Pharmacy 110.7 ml/min; Est GFR (African American) 107.1 ml/min; Est GFR (Non-African American) 92.4 ml/min; Globulin 2.2 gm/dl (2.5-4.0); Total Protein 5.4 gm/dl (6.0-8.3)
[2022-05-27] MEDS: metroNIDAZOLE 500 MG/100 ML BAG IV SCH ×3 (05:27→21:41)
[2022-05-27] MEDS: CIPROFLOXACIN / D5W 400 MG/200 ML BAG IV SCH ×2 (07:19→19:22)
[2022-05-27] MEDS: ATENOLOL 25 MG TABLET PO SCH (07:22)
--- NOTE | 2022-05-27 09:08 | Anesthesiology Consultation ---
Date of Service May 27, 2022 Assessment & Plan (1) Encounter for pre-operative examination: Chart Review Chart Review: salvage clerk initiated History Surgery Operation Date: 05/27/22 17:15 Proposed Procedures p Colonoscopy Dr Chow - Grace Chow MD Height/Weight Height: 6 ft 1 in Weight: 98.5 kg Allergies Allergy/AdvReac Type Severity Reaction Status Date / Time amoxicillin AdvReac Severe GI SYMPTOMS Verified 05/25/22 20:04 Medications Home Medications Medication Instructions Recorded Confirmed Last Taken aspirin 81 mg tablet,delayed 81 mg PO QAM 06/21/21 05/25/22 06/28/21 07:00 release atenolol 25 mg tablet 25 mg PO QAM 06/21/21 05/25/22 06/29/21 07:00 clindamycin HCl 150 mg capsule 600 mg PO UD PRN Other 06/21/21 05/25/22 Unknown clopidogrel 75 mg tablet (Plavix) 75 mg PO QAM 06/21/21 05/25/22 06/22/21 magnesium oxide 400 mg PO QPM 06/21/21 05/25/22 06/28/21 12:00 multivitamin 1 tab PO QPM 06/21/21 05/25/22 06/28/21 12:00 nitroglycerin 0.4 mg sublingual 0.4 mg sublingual UD 06/21/21 05/25/22 Unknown tablet (Nitrostat) omega 8-kbf-xfr-fish oil 1,200 mg 1 cap PO BID 06/21/21 05/25/22 06/22/21 (144 mg-216 mg) capsule (Fish Oil) rosuvastatin 10 mg tablet 10 mg PO HS 06/21/21 05/25/22 06/28/21 23:00 zinc 25 mg tablet 25 mg PO QPM 06/21/21 05/25/22 06/28/21 12:00 Active Medications Generic Name Dose Route Start Last Admin Trade Name Freq PRN Reason Stop Dose Admin Atenolol 25 mg 05/26/22 09:00 05/27/22 07:22 Atenolol 25 Mg Tablet PO 06/25/22 08:59 Not Given QAM GULSHAN Sodium Chloride 1,000 mls @ 75 mls/hr 05/25/22 22:31 05/27/22 08:55 Nss 1000ml IV 06/24/22 22:30 Infused .[id number] GULSHAN Infusion Ciprofloxacin 400 mg in 200 mls @ 100 mls/hr 05/26/22 08:00 05/27/22 07:19 Cipro / D5w IV 06/05/22 07:59 100 mls/hr Q12H GULSHAN Administration Protocol Metronidazole 500 mg in 100 mls @ 100 mls/hr 05/26/22 06:00 05/27/22 06:27 Flagyl IV 06/05/22 05:59 Infused Q8H GULSHAN Infusion Magnesium Oxide 400 mg 05/25/22 22:31 05/26/22 19:06 Magnesium Oxide 400 Mg Tab PO 06/24/22 22:30 400 mg QPM GULSHAN Administration Multivitamins 1 tab 05/25/22 22:31 05/26/22 19:05 Multivitamin Tab PO 06/24/22 22:30 1 tab QPM GULSHAN Administration Rosuvastatin Calcium 10 mg 05/25/22 22:31 05/26/22 19:06 Rosuvastatin Calcium 10 Mg Tab PO 06/24/22 22:30 10 mg HS GULSHAN Administration Zinc Sulfate 220 mg 05/25/22 22:31 05/26/22 21:12 Zinc Sulfate 220 Mg Capsule PO 06/24/22 22:30 220 mg QPM GULSHAN Administration Past Medical History Medical History Atrial fibrillation HX Coronary artery disease s/p PCI of RCA 2005 PCI of proximal LCx with JOSE 2007 History of blood transfusion 1977 Hyperlipidemia SVT (supraventricular tachycardia) 2017-F/U DR ALONSO THOMPSON Past Family History Family History Other No known health problems Past Surgical History Surgical History H/O: vasectomy History of arthroscopy RIGHT KNEE History of cardiac cath [place] [place] [facility] [place] of colonoscopy History of herniorrhaphy History of repair of rotator cuff RIGHT History of total knee replacement LEFT S/P ablation of atrial fibrillation Social History Smoking Status: Never smoker Hx Alcohol Use: Yes Alcohol type: beer alcohol intake frequency: 0-2 drinks per day Hx Substance Use: No Physical Exam Vital Signs Last Vital Signs Temp 98.1 F 12/26/22 07:48 Pulse 58 L 05/27/22 07:48 Resp 18 05/27/22 07:48 BP 165/82 H 05/27/22 07:48 Pulse Ox 98 05/27/22 07:48 O2 Del Method 05/27/22 07:48 Testing Laboratory Results 05/27/22 04:18 05/27/22 04:18 PT 11.2 Seconds (9.0-12.0) 05/25/22 17:35 INR 1.1 (0.9-1.1) 05/25/22 17:35 Blood Type A Positive 05/25/22 20:28 Antibody Screen NEGATIVE 05/25/22 20:28 Electrocardiogram Date: 05/25/22 Poor data quality, interpretation may be adversely affected Normal sinus rhythm, rate 77 bpm RSR' or QR pattern in V1 suggests right ventricular conduction delay Normal ECG When compared with ECG of 09-JUN-2016 12:24, Vent. rate has increased BY 26 BPM Confirmed by Taj Hyatt ([id number]) on 05/26/2022 2:34:41 PM Echocardiogram Date: 02/02/20 EF 60-64% LV wall thickness is moderately increased AV is congenitally bicuspid AV is mildly calcified is absent Mild AV regurgitation Mild MR LA is mildly enlarged Mild TR AR is moderately enlarged The proximal ascending thoracic aorta is mildly enlarged Compared to prior study of 02/01/2020, there is no significant change
--- NOTE | 2022-05-27 09:54 | History & Physical Bridge Note ---
Date of Service May 27, 2022 History & Physical Bridge Note I have examined the patient, reviewed the History & Physical and in the interval since the performance of the History & Physical I have noted the following changes of clinical significance: no changes noted
[2022-05-27] MEDS ORDERED: PROPOFOL IV EMULSION 10 MG/ML 20 ML VIAL IV ONE (10:37)
[2022-05-27] MEDS ORDERED: LIDOCAINE 2% MPF LOCAL 5 ML VIAL INFIL ONE (10:37)
--- NOTE | 2022-05-27 10:40 | GI REPORT ---
Patient Name: Jhonatan Glaser Procedure Date: 05/27/2022 10:07 AM Date of : 1955 Admit Type: Inpatient Age: 67 Gender: Male Attending MD: Grace Chow MD, Procedure: Upper GI endoscopy Providers: Grace Chow MD Referring MD: Lucio Mesa Indications: Hematochezia Medicines: See the Anesthesia note for documentation of the administered medications Complications: No immediate complications. Estimated Blood Loss: Estimated blood loss: none. Procedure: Pre-Anesthesia Assessment: - ASA Grade Assessment: III - A patient with severe systemic disease. After obtaining informed consent, the endoscope was passed under direct vision. Throughout the procedure, the patient's blood pressure, pulse, and oxygen saturations were monitored continuously. The scope was introduced through the mouth, and advanced to the fourth part of duodenum. The upper GI endoscopy was accomplished without difficulty. The patient tolerated the procedure well. Findings: There were multiple circumferential linear erosions in the lower esophagus. Appearance suggestive of pill esophagitis. GE junction is at 40 cm. There was a mild ring at the GE junction. There was a single erosion at the GE junction, consistent with LA class A esophagitis. There were multiple diminutive polyps throughout the body of stomach. There were multiple erosions in the body of the stomach. Random biopsies taken from throughout the stomach. The duodenum was normal. There was bilious fluid in the duodenum. Recommendation: - Discharge patient to floor. See colonoscopy report for recommendations. Grace Chow M.D. Grace Chow MD 05/27/2022 10:40:05 AM This report has been signed electronically. Note Initiated On: 05/27/2022 10:07 AM Number of Addenda: 0 I attest to the content of the Intraoperative Record and orders documented therein, exceptions below {[id number]}
--- NOTE | 2022-05-27 10:46 | GI REPORT ---
Patient Name: Jhonatan Glaser Procedure Date: 05/27/2022 10:06 AM Date of : 1955 Admit Type: Inpatient Age: 67 Gender: Male Attending MD: Grace Chow MD, Procedure: Colonoscopy Providers: Grace Chow MD Referring MD: Lucio Mesa Indications: Hematochezia Medicines: See the Anesthesia note for documentation of the administered medications Complications: No immediate complications. Estimated Blood Loss: Estimated blood loss: none. Procedure: Pre-Anesthesia Assessment: - ASA Grade Assessment: III - A patient with severe systemic disease. After I obtained informed consent, the scope was passed under direct vision. Throughout the procedure, the patient's blood pressure, pulse, and oxygen saturations were monitored continuously. The scope was introduced through the anus and advanced to the terminal ileum. The colonoscopy was performed without difficulty. The patient tolerated the procedure well. The quality of the bowel preparation was good. Anatomical landmarks were photographed. Findings: The perianal and digital rectal examinations were normal. There was green stool throughout the entire colon. There was no evidence of active bleeding. There were multiple small diverticula throughout the sigmoid and descending colon. There were no stigmata of bleeding throughout the left colon. There was a focal 1-2 cm area of colitis at the splenic flexure, notable for moderate edema, submucosal hemorrhage and a small amount of pus. Appearance consistent with diverticulitis, although differential may include ischemic colitis. There were two 1-2 mm polyps in the ascending colon removed by biopsy forceps. The remainder of the colon was normal. The ileum was normal. Recommendation: - Discharge patient to floor. - CLEARS ONLY TODAY, then full liquids tomorrow. Continue antibiotics to complete 7 days to treat focal splenic flexure colitis. - Follow hemoglobin daily. If hgb stable tomorrow, then plan for discharge on low residue diet. Grace Chow M.D. Grace Chow MD 05/27/2022 10:46:07 AM This report has been signed electronically. Note Initiated On: 05/27/2022 10:06 AM Number of Addenda: 0 I attest to the content of the Intraoperative Record and orders documented therein, exceptions below {[id number]}
--- NOTE | 2022-05-27 10:49 | Gastroenterology Progress Note ---
Date of Service May 27, 2022 Assessment & Plan Admission and Anticipated Discharge Date Admission Date: May 25, 2022 Subjective Scopes done -- see report. Bleeding may be diverticular; pt also with esophagitis, diverticulitis. Recs: Clears only today. Cont abx for 7 day course. BID PPI. Minimize NSAIDs. OK for discharge tomorrow if hgb stable. Will sign off, but please reconsult as needed. Results & Data ([facility]) Vital Signs (Past 12 Hours) Vital Signs Temp Pulse Pulse Resp BP Pulse Ox O2 Del Method 05/27/22 10:40 53 L 16 93/56 L 97 Room Air 05/27/22 09:09 36.5 C 55 L 16 154/90 H 98 Room Air 05/27/22 07:48 36.7 C 58 L 18 165/82 H 98 Room Air 05/27/22 07:22 56 L 05/27/22 05:59 60 05/27/22 03:10 36.3 C L 58 L 18 134/78 98 Room Air 05/27/22 01:02 55 L
--- NOTE | 2022-05-27 11:10 | Hospitalist Progress Note ---
Date of Service May 27, 2022 Assessment & Plan (1) Lower GI bleed: (2) Diverticulitis: (3) Acute blood loss anemia: Plan: Patient presents with history of bright red blood per rectum since 1 day; several episodes. Hypotensive in the ED. Had near syncopal when he was trying to get up in the ED. Hemoglobin dropped from 14-8since admission. BUN/creatinine within normal limits Last colonoscopy in 2017 shows diverticulosis throughout the colon. CT abdomen and pelvis on admission showed findings consistent with acute diverticulitis without evidence of perforation/abscess. Abdominal examination shows soft, nontender bowel. Endoscopy done on 05/27multiple circumferential linear erosion in lower esophagus consistent with pill esophagitis. Multiple diminutive polyps throughout the body of stomach, multiple erosions in the body of stomach. Colonoscopy done on 05/27multiple small diverticula throughout sigmoid and descending colon; no stigmata of bleeding throughout the left colon. Focal 1 to 2 cm of colitis at the splenic flexure notable for moderate edema, submucosal hemorrhage and a small amount of pus. Appearance consistent with diverticulitis, differential may include ischemic colitis. two 1 to 2 mm polyp in ascending colon removed by biopsy forcep. Plan; Will follow GI recommendations; clear liquids only today; then full liquids tomorrow. Patient to complete 7 days of antibiotics to treat for focal splenic flexure colitis. Obtain hemoglobin tomorrow morning. If hemoglobin is stable tomorrow; discharged on low residual diet. -Aspirin and Plavix on hold; will follow-up on GIs recommendation regarding resuming them. Plan Chronic conditions; CAD status post stentaspirin and Plavix currently on hold. No complaint of chest pain. History of atrial fibrillation, status post ablation. History of paroxysmal supraventricular tachycardia, on atenolol. Hypertension, on atenolol. We will monitor the blood pressure. Hyperlipidemia, on statin. Deep venous thrombosis prophylaxis: Sequential compression devices for now. Full code Admission and Anticipated Discharge Date Admission Date: May 25, 2022 Subjective Patient seen and examined at bedside. Patient reports shelia colored liquidy bowel movement yesterday during the bowel prep. Review of Systems Review of Systems: All systems reviewed & are unremarkable except as noted in Subjective Physical Exam Physical Exam: Constitutional: WD/WN, vitals as above, NAD, sitting up in bed, pleasant, conversing easily Respiratory: normal respiratory effort, lungs clear to auscultation, no wheeze, rales, rhonchi. Normal insp/exp effort, no accessory muscle use Cardiovascular: RRR, no murmur, no edema Vessels: no JVD or carotid bruit Chest: normal inspection of chest Abdomen: normal bowel sounds, soft, nontender, no hepatosplenomegaly Musculoskeletal: no cyanosis or clubbing, extremities motor strength 5/5 Skin: no rashes, warm and dry normal turgor Neurologic: PERRL, EOMI, accommodation nl, no face palsy, no dysarthria CN's II- XI intact bilaterally and moves all extremities Psychiatric: A+Ox3, euthymic affect Lymphatic: no cervical or axillary lymphadenopathy : deferred Results & Data Results & Data ([facility]) Vital Signs (Past 12 Hours) Vital Signs Temp Pulse Pulse Resp BP Pulse Ox O2 Del Method 05/27/22 10:55 47 L 16 105/63 98 Room Air 05/27/22 10:40 53 L 16 93/56 L 97 Room Air 05/27/22 09:09 36.5 C 55 L 16 154/90 H 98 Room Air 05/27/22 07:48 36.7 C 58 L 18 165/82 H 98 Room Air 05/27/22 07:22 56 L 05/27/22 05:59 60 05/27/22 03:10 36.3 C L 58 L 18 134/78 98 Room Air 05/27/22 01:02 55 L Laboratory Results Laboratory Results WBC 5.05 K/ul (4.8-10.8) 05/27/22 04:18 RBC 2.88 M/uL (4.63-6.08) L 05/27/22 04:18 Hgb 8.8 g/dl (14.0-18.0) L 05/27/22 04:18 Hct 26.4 % (40.1-51.0) L 05/27/22 04:18 MCV 91.7 fL (80.0-100.0) 05/27/22 04:18 MCH 30.6 pg (25.0-34.0) 05/27/22 04:18 MCHC 33.3 g/dL (32.0-36.0) 05/27/22 04:18 RDW Std Deviation 42.1 fL (36.4-46.3) 05/27/22 04:18 RDW Coeff of Tasha 12.5 % (11.5-14.5) 05/27/22 04:18 Plt Count 145 K/uL (130-400) 05/27/22 04:18 MPV 9.0 fL (9.4-12.4) L 05/27/22 04:18 Immature Gran % (Auto) 0.6 % 05/27/22 04:18 Neut % (Auto) 51.9 % 05/27/22 04:18 Lymph % (Auto) 35.2 % 05/27/22 04:18 [place] % (Auto) 8.3 % 05/27/22 04:18 Eos % (Auto) 3.0 % 05/27/22 04:18 Baso % (Auto) 1.0 % 05/27/22 04:18 Neut # (Auto) 2.62 K/uL (1.4-6.5) 05/27/22 04:18 Lymph # (Auto) 1.78 K/uL (1.2-3.4) 05/27/22 04:18 [place] # (Auto) 0.42 K/uL (0.24-0.82) 05/27/22 04:18 Eos # (Auto) 0.15 K/uL (0-0.50) 05/27/22 04:18 Baso # (Auto) 0.05 K/uL (0-0.2) 05/27/22 04:18 Immature Gran # (Auto) 0.03 K/uL (0.00-0.02) H 05/27/22 04:18 PT 11.2 Seconds (9.0-12.0) 05/25/22 17:35 INR 1.1 (0.9-1.1) 05/25/22 17:35 Sodium 140 mmol/L (136-145) 05/27/22 04:18 Potassium 4.0 mmol/L (3.5-5.1) 05/27/22 04:18 Chloride 109 mmol/L (98-107) H 05/27/22 04:18 Carbon Dioxide 28 mmol/L (21-32) 05/27/22 04:18 Anion Gap 3 (3-11) 05/27/22 04:18 BUN 14 mg/dl (6-23) 05/27/22 04:18 Creatinine 0.80 mg/dl (0.6-1.4) 05/27/22 04:18 Est Cr Clr Drug Dosing 110.7 ml/min 05/27/22 04:18 Est GFR ( Amer) 107.1 ml/min 05/27/22 04:18 Est GFR (Non-Af Amer) 92.4 ml/min 05/27/22 04:18 BUN/Creatinine Ratio 17.5 (10-20) 05/27/22 04:18 Glucose 109 mg/dl (70-99(Fasting)) H 05/27/22 04:18 Calcium 7.9 mg/dl (8.5-10.1) L 05/27/22 04:18 Magnesium 2.0 mg/dl (1.7-2.4) 05/26/22 05:22 Total Bilirubin 0.4 mg/dl (0.2-1.0) 05/27/22 04:18 AST 16 U/L (13-39) 05/27/22 04:18 ALT 18 U/L (7-52) 05/27/22 04:18 Alkaline Phosphatase 34 U/L (34-104) 05/27/22 04:18 Troponin I High Sens 4.3 pg/ml (0-20) 05/25/22 17:35 Total Protein 5.4 gm/dl (6.0-8.3) L D 05/27/22 04:18 Albumin 3.2 gm/dl (3.4-5.0) L 05/27/22 04:18 Globulin 2.2 gm/dl (2.5-4.0) L 05/27/22 04:18 Albumin/Globulin Ratio 1.5 (0.9-2) 05/27/22 04:18 Lipase 44 U/L (11-82) 05/25/22 17:35 SARS-CoV-2, RNA, NAAT NEGATIVE (NEGATIVE) 05/25/22 20:02 Blood Type A Positive 05/25/22 20:28 Antibody Screen NEGATIVE 05/25/22 20:28 Impressions Abdomen/Pelvis CT 05/25/22 18:02 CT abd pelvis IV con only CLINICAL HISTORY: GI bleed, recent LLQ pain TECHNIQUE: Helical axial images of the abdomen and pelvis were obtained and displayed. Automated dose lowering techniques and/or adjustment according to patient size were utilized for this exam. This exam was performed with intraven ous contrast. CT DOSE: 551.60 mGy.cm COMPARISON: None available at the time of this dictation. FINDINGS: Lower chest: No acute abnormality. Liver: Unremarkable. No focal lesions are seen. Gallbladder and biliary tree: No calcified gallstones. Normal caliber wall. No intra- or extrahepatic biliary ductal dilation. Pancreas: Unremarkable, no focal lesions. Spleen: Splenule is incidentally noted. Adrenals: Unremarkable. Kidneys and ureters: Parapelvic cysts are seen bilaterally. Bladder: Unremarkable. Reproductive organs: Unremarkable. Bowel: Numerous diverticuli are seen and there is focal fat stranding and a portion of the descending colon. Lymph nodes Retroperitoneal: Unremarkable. Pelvic: Unremarkable. Mesenteric: Unremarkable. Peritoneum: Normal. Vessels: Unremarkable. Abdominal wall: Bilateral fat-containing inguinal hernias are seen. Fat- containing umbilical hernia is seen. Bones: Degenerative changes in the visualized spine. IMPRESSION: Findings are compatible with acute diverticulitis without evidence of perforation or abscess. ACT 112: Negative or not required by law. Electronically signed by: Eloy Morales M.D. 05/25/2022 6:56 PM
--- NOTE | 2022-05-27 11:23 | Anesthesiology Progress Note ---
Date of Service May 27, 2022 Anesthesia Post Procedure Vital Signs Vital Signs: Temp Pulse Pulse Resp BP Pulse Ox O2 Del Method 05/27/22 11:10 53 L 16 135/73 100 Room Air 05/27/22 10:55 47 L 16 105/63 98 Room Air 05/27/22 10:40 53 L 16 93/56 L 97 Room Air 05/27/22 09:09 97.7 F 55 L 16 154/90 H 98 Room Air 05/27/22 07:48 98.1 F 58 L 18 165/82 H 98 Room Air 05/27/22 07:22 56 L 05/27/22 05:59 60 05/27/22 03:10 97.3 F L 58 L 18 134/78 98 Room Air 05/27/22 01:02 55 L 05/26/22 22:36 96.3 F L 55 L 18 131/79 99 Room Air 05/26/22 19:09 98.4 F 61 18 127/70 98 Room Air 05/26/22 14:08 57 L 05/26/22 11:38 97.3 F L 52 L 18 108/62 98 Room Air Transfer of Care Handoff Completed per policy Notes Mental Status: alert / awake / arousable and participated in evaluation Patient Amnestic to Procedure: Yes Nausea / Vomiting: adequately controlled Pain: adequately controlled Airway Patency, RR, SpO2: stable & adequate BP & HR: stable & adequate Hydration State: stable & adequate Anesthetic Complications: no major complications apparent and Pt Satisfied with anesthetic care
[2022-05-27] MEDS: SODIUM CHLORIDE 0.9% 1000ML 1,000 ML IV SCH (11:33)
[2022-05-27] MEDS: MULTIVITAMIN TAB PO SCH (20:04)
[2022-05-27] MEDS: MAGNESIUM OXIDE 400 MG TAB PO SCH (20:04)
[2022-05-27] MEDS: PANTOprazole 40 MG TAB PO SCH (20:05)
[2022-05-27] MEDS: ZINC SULFATE 220 MG CAPSULE PO SCH (20:05)
[2022-05-28] MEDS: metroNIDAZOLE 500 MG/100 ML BAG IV SCH (05:23)
[2022-05-28 06:35] LABS: Basophils # (auto) 0.04 K/uL (0-0.2); Basophils % (auto) 1.1 %; Eosinophils % (auto) 2.7 %; Hematocrit (blood only) 27.6 % (40.1-51.0); Hemoglobin 9.3 g/dl (14.0-18.0); Immature Granulocytes # (auto) 0.02 K/uL (0.00-0.02); Immature Granulocytes % (auto) 0.5 %; Lymphocytes # (auto) 1.14 K/uL (1.2-3.4); Mean Corpuscular Hemoglobin 30.7 pg (25.0-34.0); Mean Corpuscular Hgb Conc 33.7 g/dL (32.0-36.0); Mean Corpuscular Volume 91.1 fL (80.0-100.0); Mean Platelet Volume 8.9 fL (9.4-12.4); Monocytes # (auto) 0.29 K/uL (0.24-0.82); Monocytes % (auto) 7.9 %; Neutrophils # (auto) 2.09 K/uL (1.4-6.5); Neutrophils % (auto) 56.8 %; Platelet Count 158 K/uL (130-400); RDW Coefficient of Variation 12.5 % (11.5-14.5); RDW Standard Deviation 41.3 fL (36.4-46.3); Red Blood Count 3.03 M/uL (4.63-6.08); White Blood Count 3.68 K/ul (4.8-10.8)
[2022-05-28 06:57] LABS: Albumin Globulin Ratio 1.5 (0.9-2); Albumin Level 3.6 gm/dl (3.4-5.0); BUN Creatinine Ratio 9.6 (10-20); Bilirubin,Total 0.4 mg/dl (0.2-1.0); Calcium 8.4 mg/dl (8.5-10.1); Creatinine Clr Calc Pharmacy 105.8 ml/min; Est GFR (African American) 105.5 ml/min; Globulin 2.4 gm/dl (2.5-4.0); Magnesium 1.9 mg/dl (1.7-2.4); Potassium 3.6 mmol/L (3.5-5.1)
[2022-05-28] MEDS: PANTOprazole 40 MG TAB PO SCH (07:29)
[2022-05-28] MEDS: ATENOLOL 25 MG TABLET PO SCH (07:29)
[2022-05-28] MEDS: CIPROFLOXACIN / D5W 400 MG/200 ML BAG IV SCH (07:29)
--- NOTE | 2022-05-28 10:36 | Gastroenterology Progress Note ---
Date of Service May 28, 2022 Assessment & Plan Admission and Anticipated Discharge Date Admission Date: May 25, 2022 Subjective No complaints. Feeling well. CV: RRR Resp: CTA ABd: soft A:P: Diverticular bleed - resolved. Dc on iron/folate supplements. PCP to f/u CBC. Diverticulitis - complete 5 days of abx, low res diet x 1 week, then normal Esophagitis - PPI BID x 8 weeks. I will arrange f/u EGD. Results & Data ([facility]) Vital Signs (Past 12 Hours) Vital Signs Temp Pulse Pulse Resp BP BP Pulse Ox 05/28/22 10:14 36.7 C 66 16 159/82 H 148/81 H 95 05/28/22 07:53 36.7 C 66 16 159/82 H 95 05/28/22 07:10 94 H 05/28/22 02:52 36.4 C L 65 18 139/71 98 05/28/22 02:02 60 05/27/22 22:50 36.5 C 71 18 141/68 H 95 O2 Del Method 05/28/22 10:14 05/28/22 07:53 Room Air 05/28/22 07:10 05/28/22 02:52 Room Air 05/28/22 02:02 05/27/22 22:50 Room Air
--- NOTE | 2022-05-28 11:54 | Discharge Summary ---
Date of Service May 28, 2022 Admission HPI Per Admitting Provider A 67-year-old male with past medical history significant for hyperlipidemia, history of coronary artery disease, status post stent, history of paroxysmal supraventricular tachycardia, hypertension, bicuspid aortic valve, history of atrial fibrillation, status post ablation, presents with rectal bleed started today evening, several episodes. He had couple of episodes in the ER, hemodynamically stable. Denies any abdominal pain. It seems that he had previous colonoscopy and was told he has diverticulosis and the patient has no history of prior GI bleed. In the ER, when he stood up and was going to bathroom, he had a near syncopal episode seems blood pressure dropped at that time. Currently lying in the bed, is comfortable. Denies any dizziness. Currently, no headache, no blurred vision or double vision. No earache, no runny nose, no sore throat, no cough, no recent weight gain, weight loss, no night sweats. No chest pain, no shortness of breath. No nausea, no abdominal pain. Today with blood in stools had diarrhea. Normal bladder movements. No hematuria or burning micturition. No rash, no swelling in the legs. Otherwise, ambulates fine. Currently, hemodynamically stable Admission Exam Per Admitting Provider GENERAL: The patient is of moderate build, not in acute distress. VITAL SIGNS: Temperature 36.3, pulse 77, respiratory rate 16, blood pressure 125/67, oxygen 97% on room air. HEENT: Pupils equal, round and reactive to light. Oral mucosa moist. NECK: No JVD, no neck masses. CARDIOVASCULAR: S1 and S2 heard. Regular rate and rhythm. RESPIRATORY SYSTEM: Normal AP diameter. No accessory muscle use. No wheezing, no crackles. ABDOMEN: Soft, bowel sounds present, nontender, no distention. No guarding or rigidity. CENTRAL NERVOUS SYSTEM: Cranial nerves II-XII grossly intact. Alert and oriented. Speech is clear. No facial droop. Obeys simple commands. Insight is good. Moves extremities. EXTREMITIES: No edema, no erythema. Principal Diagnosis (1) Lower GI bleed: (2) Diverticulitis: (3) Acute blood loss anemia Discharge Exam Constitutional: WD/WN, vitals as above, NAD, sitting up in bed, pleasant, conversing easily Respiratory: normal respiratory effort, lungs clear to auscultation, no wheeze, rales, rhonchi. Normal insp/exp effort, no accessory muscle use Cardiovascular: RRR, no murmur, no edema Vessels: no JVD or carotid bruit Chest: normal inspection of chest Abdomen: normal bowel sounds, soft, nontender, no hepatosplenomegaly Musculoskeletal: no cyanosis or clubbing, extremities motor strength 5/5 Skin: no rashes, warm and dry normal turgor Neurologic: PERRL, EOMI, accommodation nl, no face palsy, no dysarthria CN's II- XI intact bilaterally and moves all extremities Psychiatric: A+Ox3, euthymic affect Lymphatic: no cervical or axillary lymphadenopathy : deferred Discharge Data Allergies Allergy/AdvReac Type Severity Reaction Status Date / Time amoxicillin AdvReac Severe GI SYMPTOMS Verified 05/25/22 20:04 Consultations 05/25/22 19:53 ED Decision to Admit Stat 05/26/22 08:00 Consult Gastroenterology Routine Procedures Performed Operation Date: 05/27/22 17:15 Actual Procedures p EGD Biopsy Cytology - Grace Chow MD s Colonoscopy Polypectomy - Grace Chow MD Ordered Studies 05/25/22 18:02 CT abd pelvis IV con only Stat Hospital Course (1) Lower GI bleed: (2) Diverticulitis: (3) Acute blood loss anemia: Plan Patient presents with history of bright red blood per rectum since 1 day; several episodes. Hypotensive in the ED. Had near syncopal when he was trying to get up in the ED. Hemoglobin dropped from 14 to [address] abdomen and pelvis on admission showed findings consistent with acute diverticulitis without evidence of perforation/abscess. Abdominal examination shows soft, nontender bowel. Endoscopy done on 05/27multiple circumferential linear erosion in lower esophagus consistent with pill esophagitis. Multiple diminutive polyps throughout the body of stomach, multiple erosions in the body of stomach. Colonoscopy done on 05/27multiple small diverticula throughout sigmoid and descending colon; no stigmata of bleeding throughout the left colon. Focal 1 to 2 cm of colitis at the splenic flexure notable for moderate edema, submucosal hemorrhage and a small amount of pus. Appearance consistent with diverticulitis, differential may include ischemic colitis. two 1 to 2 mm polyp in ascending colon removed by biopsy forcep. Plan; Patient was started on Protonix 40 mg twice daily as per GI recommendation on discharge for esophagitis. He was also given 5 more days of Cipro and Flagyl for diverticulitis. He was also given prescription for iron pills to be taken after the antibiotic course is over. As per discussion with GI; patient aspirin was instructed to be resumed from tomorrow. Plavix to be on hold for 5 more days. Patient has outpatient follow-up with his primary care doctor within a week. GI will call him regarding the biopsy result from endoscopy and colonosc opy. Total Time Total Time Spent Total Time Spent (In Minutes): 40 Discharge Plan Discharge Items Patient Disposition: Home - Self-Care Reason For Visit: BLOOD IN STOOL, SIGNIFICANT Discharge Diagnosis: (1) Lower GI bleed: (2) Diverticulitis: (3) Acute blood loss anemia: Activity: Resume your previous activity Non-emergency contact: Primary Care Provider Call non-emergency contact if: you have any medication questions and your symptoms worsen Follow-up/Referrals: Lucio Mesa MD [Primary Care Provider] - Diet: Regular Addtl Attending Provider Instructions: You were admitted to the hospital with GI bleeding. Your hemoglobin level was 14 on admission. On the day of the discharge, your hemoglobin is 9. Endoscopy done on 05/27 showed multiple circumferential linear erosion in lower esophagus consistent with pill esophagitis. Multiple diminutive polyps throughout the body of stomach, multiple erosions in the body of stomach. You were started on Protonix 40 mg twice daily for next 30 days. Colonoscopy done on 05/27 showed multiple small diverticula throughout sigmoid and descending colon; no stigmata of bleeding throughout the left colon. Focal 1 to 2 cm of colitis at the splenic flexure notable for moderate edema, submucosal hemorrhage and a small amount of pus. Appearance consistent with diverticulitis, differential may include ischemic colitis. two 1 to 2 mm polyp in ascending colon removed by biopsy forcep. You were prescribed following antibiotics to be taken for 5 more days: 1) Ciprofloxacin twice daily for 5 days 2) Metronidazole 3 times a day for 5 days You can resume taking aspirin starting today. Please start Plavix after you are done with the antibiotic course ( After 5 days). You were also prescribed iron tablets for anemia. Please Start the iron tablets after you are done with antibiotic course ( After 5 days). You will be called by gastroenterology for follow-up and also to inform you regarding the biopsy results from your endoscopy/colonscopy. You will have a follow-up set up with your primary care doctor for (May 31Friday at 11: 20 am) Pending Studies at Discharge: No Stand-Alone Forms: [facility], Smoking Cessation Medications and DC Order Prescriptions: New pantoprazole 40 mg Tablet,Delayed Release (Dr/Ec) 40 mg PO BID Qty: 60 0RF ciprofloxacin HCl [Cipro] 500 mg tablet 500 mg PO BID 5 Days Qty: 10 0RF metronidazole 500 mg tablet 500 mg PO Q8H 5 Days Qty: 15 0RF ferrous sulfate [iron] 325 mg (65 mg iron) tablet 325 mg PO DAILY Qty: 30 0RF Continued atenolol 25 mg Tablet 25 mg PO QAM clopidogrel [Plavix] 75 mg Tablet 75 mg PO QAM aspirin 81 mg Tablet,Delayed Release (Dr/Ec) 81 mg PO QAM omega [id number]-fish oil [Fish Oil] 1,200 (144-216) mg Capsule 1 cap PO BID magnesium oxide 400 mg magnesium Tablet 400 mg PO QPM zinc 25 mg Tablet 25 mg PO QPM nitroglycerin [Nitrostat] 0.4 mg Tablet, Sublingual 0.4 mg sublingual UD rosuvastatin 10 mg Tablet 10 mg PO HS clindamycin HCl 150 mg Capsule 600 mg PO UD PRN (Reason: Other) Discontinued multivitamin Tablet 1 tab PO QPM Discharge Orders: Discharge Order (Routine); Ordered 05/28/22 Ordered By: Hermelindo Bradley Admission Data Admit Date/Time: 05/25/22 20:46 Attending Provider: Hermelindo Bradley Admit Provider: Oswald Yeboah Primary Care Provider: Lucio Mesa Other Providers: Oswald Yeboah ; Grace Chow Other Interventions: Discharge Summary Assessment (RN) Last Done: 05/28/22 10:14
== END 2022-05-28 11:51 | disposition home or self-care (01) | DRG 378 ==
LOC: ED 16:46 → 2N 22:09